=== PATIENT | female | born 1955 | race Caucasian/White ===

== ENCOUNTER → 2018-01-13 14:09 | Outpatient (CLI) | payer OTHER, SELFPAY ==
[2018-01-13 15:50] LABS: Absolute Lymphocyte Count 2.32 X10^3/ul (0.83-4.51); Basophil# 0.04 X10^3/uL; Basophil% 0.7 % (0-1); Eosinophil# 0.24 X10^3/uL; Hematocrit 36.7 % (37-47); Hemoglobin 12.3 g/dl (12.0-15.0); Lymphocyte # 2.32 X10^3/ul (4.0); Lymphocyte % 38.7 % (19-41); Mean Corp Hgb Conc 33.5 g/gl (32-36); Mean Corpuscular Hgb 31.5 pg (27.0-32.0); Mean Corpuscular Volume 93.9 fL (81-99); Mean Platelet Vol. 9.1 fl (6.2-12.0); Monocyte# 0.43 X10^3/uL; Monocyte% 7.2 % (0-10); Neutrophil # 2.95 X10^3/uL (2.7-7.7); Neutrophil % 49.2 % (47-70); Platelet Count 292 K/mm3 (150-450); RBC Distribution Width CV 12.5 % (11.6-14.6); RBC Distribution Width SD 42.1 fl (35.1-43.9); Red Blood Count 3.91 M/mm3 (4.2-5.4)
[2018-01-13 15:53] LABS: POSITIVE COUNT NO; POSITIVE DIFFERENTIAL NO; POSITIVE MORPHOLOGY NO
[2018-01-13 16:15] LABS: Anion Gap 9 (5-15); BUN 19 mg/dL (7-18); Calcium,Total 8.4 mg/dL (8.5-10.1); Chloride 111 mmol/L (98-107); EST Glomerular Filtration Rate 89 mL/min (>60); Est Glom Filt Rate - Afr Amer 108 mL/min (>60); Glucose 96 mg/dL (74-106); Potassium 3.5 mmol/L (3.5-5.1); Sodium Level 143 mmol/L (136-145)
[2018-01-14 08:35] LABS: Vitamin D,25 Hydroxy 64.1 ng/mL (29.95-100.01)
== END ==
PROVIDERS: Family Provider Family Medicine; PCP Family Medicine; Visit Provider Family Medicine
DX: I10 Essential (primary) hypertension (principal); L20.9 Atopic dermatitis, unspecified; M81.0 Age-related osteoporosis without current pathological fracture
CPT/HCPCS: 36415; 80048; 82306; 85025

== ENCOUNTER → 2018-03-23 09:55 | Outpatient (CLI) | payer OTHER, SELFPAY ==
[2018-03-23 12:33] LABS: Erythrocyte Sedimentation Rate 4 mm/hr (0-30)
[2018-03-23 12:34] LABS: Absolute Lymphocyte Count 2.43 X10^3/ul (0.83-4.51); Absolute Neutrophil Count 2.6 X10^3/uL (2.0-7.7); Basophil# 0.04 X10^3/uL; Basophil% 0.7 % (0-1); Eosinophil# 0.26 X10^3/uL; Eosinophils% 4.5 % (0-5); Hematocrit 39.7 % (37-47); Hemoglobin 13.5 g/dl (12.0-15.0); Lymphocyte # 2.43 X10^3/ul (4.0); Mean Corpuscular Hgb 31.3 pg (27.0-32.0); Mean Corpuscular Volume 92.1 fL (81-99); Mean Platelet Vol. 9.2 fl (6.2-12.0); Monocyte# 0.44 X10^3/uL; Monocyte% 7.6 % (0-10); Neutrophil # 2.62 X10^3/uL (2.7-7.7); Neutrophil % 45.2 % (47-70); POSITIVE COUNT NO; POSITIVE DIFFERENTIAL NO; POSITIVE MORPHOLOGY NO; Platelet Count 294 K/mm3 (150-450); RBC Distribution Width CV 11.8 % (11.6-14.6); RBC Distribution Width SD 39.1 fl (35.1-43.9); Red Blood Count 4.31 M/mm3 (4.2-5.4); White Blood Count 5.8 K/mm3 (4.4-11.0)
[2018-03-23 12:40] LABS: ALB/GLOB Ratio 1.2 RATIO (0.9-2.4); AST(SGOT) 18 U/L (15-37); Alanine Aminotransfer ALT/SGPT 24 U/L (13-56); Albumin, Serum 3.8 g/dL (3.2-5.0); Alkaline Phosphatase 110 U/L (45-117); Anion Gap 9 (5-15); BUN 23 mg/dL (7-18); BUN/Creat Ratio 32.6 RATIO (10-20); CRP < 2.90 mg/L (0.0-3.0); Calcium,Total 8.7 mg/dL (8.5-10.1); Chloride 108 mmol/L (98-107); Creatinine, Serum 0.71 mg/dL (0.55-1.02); EST Glomerular Filtration Rate 89 mL/min (>60); Est Glom Filt Rate - Afr Amer 108 mL/min (>60); Globulin 3.2 g/dL (2.2-4.2); Glucose 88 mg/dL (74-106); Potassium 3.9 mmol/L (3.5-5.1); Sodium Level 143 mmol/L (136-145)
== END ==
PROVIDERS: Family Provider Family Medicine; PCP Family Medicine; Visit Provider Internal Medicine Rheumatology
DX: M06.4 Inflammatory polyarthropathy (principal); M18.0 Bilateral primary osteoarthritis of first carpometacarpal joints; M19.072 Primary osteoarthritis, left ankle and foot; M41.9 Scoliosis, unspecified; I10 Essential (primary) hypertension
CPT/HCPCS: 36415; 80053; 85025; 85652; 86140

== ENCOUNTER → 2018-07-01 12:44 | Outpatient (CLI) | payer OTHER, SELFPAY ==
[2018-07-01 14:05] LABS: Absolute Lymphocyte Count 2.67 X10^3/ul (0.83-4.51); Absolute Neutrophil Count 2.1 X10^3/uL (2.0-7.7); Basophil# 0.06 X10^3/uL; Basophil% 1.1 % (0-1); Eosinophil# 0.24 X10^3/uL; Eosinophils% 4.4 % (0-5); Hematocrit 41.2 % (37-47); Hemoglobin 13.6 g/dl (12.0-15.0); Lymphocyte # 2.67 X10^3/ul (4.0); Lymphocyte % 49.4 % (19-41); Mean Corpuscular Hgb 30.3 pg (27.0-32.0); Mean Corpuscular Volume 91.8 fL (81-99); Monocyte# 0.32 X10^3/uL; Monocyte% 5.9 % (0-10); Neutrophil # 2.11 X10^3/uL (2.7-7.7); Neutrophil % 39.2 % (47-70); Platelet Count 282 K/mm3 (150-450); RBC Distribution Width SD 40.4 fl (35.1-43.9); Red Blood Count 4.49 M/mm3 (4.2-5.4); White Blood Count 5.4 K/mm3 (4.4-11.0)
[2018-07-01 14:06] LABS: POSITIVE COUNT NO; POSITIVE DIFFERENTIAL NO; POSITIVE MORPHOLOGY NO
[2018-07-01 14:46] LABS: ALB/GLOB Ratio 1.2 RATIO (0.9-2.4); AST(SGOT) 17 U/L (15-37); Alanine Aminotransfer ALT/SGPT 23 U/L (13-56); Alkaline Phosphatase 102 U/L (45-117); Anion Gap 8 (5-15); BUN 16 mg/dL (7-18); BUN/Creat Ratio 22.9 RATIO (10-20); Calcium,Total 8.9 mg/dL (8.5-10.1); Chloride 104 mmol/L (98-107); EST Glomerular Filtration Rate 90 mL/min (>60); Est Glom Filt Rate - Afr Amer 109 mL/min (>60); Globulin 3.3 g/dL (2.2-4.2); Glucose 101 mg/dL (74-106); Potassium 3.9 mmol/L (3.5-5.1); Protein, Total 7.3 g/dL (6.4-8.2); Sodium Level 141 mmol/L (136-145)
== END ==
PROVIDERS: Family Provider Family Medicine; PCP Family Medicine; Referring Provider Internal Medicine Rheumatology; Visit Provider Internal Medicine Rheumatology
DX: M06.4 Inflammatory polyarthropathy (principal); M18.0 Bilateral primary osteoarthritis of first carpometacarpal joints; M19.072 Primary osteoarthritis, left ankle and foot; M41.9 Scoliosis, unspecified; I10 Essential (primary) hypertension
CPT/HCPCS: 36415; 80053; 85025

== ENCOUNTER → 2019-07-18 09:17 | Outpatient (CLI) | payer OTHER, SELFPAY ==
[2019-07-18 10:45] LABS: ALB/GLOB Ratio 1.2 RATIO (0.9-2.4); AST(SGOT) 16 U/L (15-37); Alanine Aminotransfer ALT/SGPT 21 U/L (13-56); Albumin, Serum 3.9 g/dL (3.2-5.0); Alkaline Phosphatase 114 U/L (45-117); Anion Gap 7 (5-15); BUN 21 mg/dL (7-18); BUN/Creat Ratio 25.5 RATIO (10-20); Calcium,Total 8.7 mg/dL (8.5-10.1); Chloride 107 mmol/L (98-107); Cholesterol 199 mg/dL (200); Creatinine, Serum 0.82 mg/dL (0.55-1.02); EST Glomerular Filtration Rate 74 mL/min (>60); Est Glom Filt Rate - Afr Amer 90 mL/min (>60); Globulin 3.3 g/dL (2.2-4.2); Glucose 96 mg/dL (74-106); High Density Lipoprotein 62 mg/dL; Potassium 3.8 mmol/L (3.5-5.1); Protein, Total 7.2 g/dL (6.4-8.2); Sodium Level 140 mmol/L (136-145); Triglycerides 100 mg/dL; Very Low Density Lipoprotein 20 mg/dL (5-40)
== END ==
PROVIDERS: Family Provider Family Medicine; PCP Family Medicine; Referring Provider Family Medicine; Visit Provider Family Medicine
DX: I10 Essential (primary) hypertension (principal)
CPT/HCPCS: 36415; 80053; 80061

== ENCOUNTER → 2020-07-22 08:14 | Outpatient (CLI) | payer MEDICARE, SELFPAY ==
[2020-07-22 10:18] LABS: Absolute Lymphocyte Count 2.52 X10^3/uL (0.83-4.51); Absolute Neutrophil Count 1.8 X10^3/uL (2.0-7.7); Basophil# 0.06 X10^3/uL; Basophil% 1.2 % (0-1); Eosinophil# 0.25 X10^3/uL; Hematocrit 40.7 % (37-47); Hemoglobin 13.7 g/dL (12.0-15.0); Lymphocyte # 2.52 X10^3/ul (4.0); Lymphocyte % 50.3 % (19-41); Mean Corp Hgb Conc 33.7 g/dL (32-36); Mean Corpuscular Hgb 31.4 pg (27.0-32.0); Mean Corpuscular Volume 93.3 fL (81-99); Mean Platelet Vol. 9.1 fl (6.2-12.0); Monocyte# 0.37 X10^3/uL; Monocyte% 7.4 % (0-10); NRBC Flagged by Analyzer 0 % (0-5); Neutrophil % 35.9 % (47-70); Platelet Count 319 K/mm3 (150-450); RBC Distribution Width CV 11.7 % (11.6-14.6); RBC Distribution Width SD 39.8 fl (35.1-43.9); Red Blood Count 4.36 M/mm3 (4.2-5.4)
[2020-07-22 10:34] LABS: ALB/GLOB Ratio 1.1 RATIO (0.9-2.4); AST(SGOT) 13 U/L (15-37); Alanine Aminotransfer ALT/SGPT 18 U/L (13-56); Albumin, Serum 3.7 g/dL (3.2-5.0); Alkaline Phosphatase 120 U/L (45-117); Anion Gap 9 (5-15); BUN 23 mg/dL (7-18); BUN/Creat Ratio 32.2 RATIO (10-20); Calcium,Total 9.1 mg/dL (8.5-10.1); Chloride 107 mmol/L (98-107); Cholesterol 180 mg/dL (200); Creatinine, Serum 0.71 mg/dL (0.55-1.02); EST Glomerular Filtration Rate 87 mL/min (>60); Est Glom Filt Rate - Afr Amer 105 mL/min (>60); Globulin 3.4 g/dL (2.2-4.2); Glucose 98 mg/dL (74-106); High Density Lipoprotein 64 mg/dL; Lipase 145 U/L (73-393); Potassium 3.9 mmol/L (3.5-5.1); Protein, Total 7.1 g/dL (6.4-8.2); Sodium Level 142 mmol/L (136-145); Triglycerides 88 mg/dL; Very Low Density Lipoprotein 18 mg/dL (5-40)
== END ==
PROVIDERS: PCP Family Medicine; Referring Provider Family Medicine; Visit Provider Family Medicine
DX: R10.9 Unspecified abdominal pain (principal); I10 Essential (primary) hypertension
CPT/HCPCS: 36415; 80053; 80061; 83690; 85025

== ENCOUNTER → 2020-07-24 06:28 | Outpatient (CLI) | payer MEDICARE, SELFPAY ==
--- NOTE | 2020-07-24 06:48 | MRI_ITS ---
ACR Level 3 findings have been noted. An addendum which confirms receipt of the report will follow. STUDY: MRI BRAIN WITHOUT CONTRAST REASON FOR EXAM: Female, 65 years old. headaches, family history of glioblastoma TECHNIQUE: Standardized multiplanar fat and water weighted pulse sequences were obtained. COMPARISON: None. FINDINGS: Normal size of the ventricles and extra-axial spaces for the patient''s age. Normal white matter tracts of the supratentorial brain. Normal bilateral basal ganglia. Normal thalami. There is 2.7 x 2.3 x 3.0 cm extra-axial rounded mass along the left interhemispheric fissure. There is relatively low T2 signal and restricted diffusion. There is central heterogeneous signal. There is no demonstrated surrounding edema. Normal flow voids within the major intracranial circulation suggesting patency by spin echo criteria. Normal sella turcica, pituitary gland, infundibular stalk, optic chiasm and hypothalamus. Normal tectal plate and pineal gland. Normal midbrain, fady and medulla. Normal cerebellum. Normal basal cisterns. MRI/Brain without Contrast IMPRESSION: 3.0 cm left parafalcine mass. Leading differential consideration is meningioma. Comparison with prior examinations if available or further evaluation with contrast-enhanced MRI is recommended. Electronically Signed: Vinh Kolb MD at 8:03 EST Tel , Service support ,
--- NOTE | 2020-07-24 09:40 | MRI_ITS ---
STUDY: MRI BRAIN WITH CONTRAST REASON FOR EXAM: Female, 65 years old. BLOOM, FOLLOW UP TO NON CONTRAST SCAN EARLIER TODAY TECHNIQUE: Standardized multiplanar fat and water weighted pulse sequences were obtained. IV Dotarem 13ml was administered for the contrast portion of the examination. COMPARISON: 07/24/2020 FINDINGS: Normal size of the ventricles and extra-axial spaces for the patient''s age. Normal white matter tracts of the supratentorial brain. Normal bilateral basal ganglia. Normal thalami. There is no extra-axial fluid accumulation. Normal flow voids within the major intracranial circulation suggesting patency by spin echo criteria. Normal venous enhancement. There is solid enhancement of the dural based mass of the left side of the falx consistent with a meningioma with mild mass effect on the superior left frontal lobe but no surrounding gliosis or edema. Normal sella turcica, pituitary gland, infundibular stalk, optic chiasm and hypothalamus. Normal tectal plate and pineal gland. Normal midbrain, fady and medulla. Normal cerebellum. Normal basal cisterns. Normal bilateral temporal bones. Normal bilateral internal auditory canals. No demonstrated orbital abnormality, within the constraints of a routine brain study. Normal visualized paranasal sinuses. Normal calvarium and skull base. Normal visualized soft tissue structures. Normal visualized upper cervical spine. MRI/Brain WITH Contrast IMPRESSION: 2.5 cm round meningioma the left side of the falx cerebri with mild mass effect on the superior left frontal lobe. Electronically Signed: Brodie Garnica MD at 15:45 EST Tel , Service support ,
== END ==
PROVIDERS: PCP Family Medicine; Referring Provider Family Medicine; Visit Provider Family Medicine
DX: R51.9 Headache, unspecified (principal)
CPT/HCPCS: 70551; 70552; A9575

== ENCOUNTER → 2020-07-25 09:30 | Outpatient (CLI) | payer MEDICARE, SELFPAY ==
--- NOTE | 2020-07-25 09:40 | US_ITS ---
STUDY: ABDOMINAL ULTRASOUND REASON FOR EXAM: Female, 65 years old. ABDOMEN PAIN HX IBS TECHNIQUE: Transabdominal ultrasound was performed with real-time and static wadsworth scale imaging. TECHNICAL QUALITY: Adequate. COMPARISON: None. FINDINGS: Liver: The liver measures 16.7 cm. There is normal echogenicity of the liver. The bile ducts are within normal limits. There is hepatic color flow. The direction of portal flow is hepatopetal. There is no demonstrated mass lesion. Portal vein measurement: Gallbladder: The patient is status post cholecystectomy.. Common Bile Duct (C.B.D.): The common bile duct measures 3 mm. Pancreas: Normal size of the head, body and tail of the pancreas. There is normal echogenicity of the pancreas. There is no demonstrated pancreatic mass or cyst. Spleen: Normal size of the spleen. The spleen measures 7.5 cm. Right Kidney: Normal size of the right kidney. The right kidney measures 10.5 cm. Normal renal cortex. The right cortex measures 1.2 cm. There is no demonstrated renal mass or cyst. There is no right hydronephrosis. Left Kidney: Normal size of the left kidney. The left kidney measures 10.1 cm. Normal renal cortex. The left cortex measures 1.8 cm. There is no demonstrated renal mass or cyst. There is no left hydronephrosis. Aorta: No abdominal aortic aneurysm. I.V.C.: The IVC is patent. There is no ascites. US/Abdomen Complete IMPRESSION: Normal abdominal ultrasound examination after cholecystectomy. Electronically Signed: Brodie Garnica MD at 13:11 EST Tel , Service support ,
== END ==
PROVIDERS: PCP Family Medicine; Referring Provider Family Medicine; Visit Provider Family Medicine
DX: R10.9 Unspecified abdominal pain (principal)
CPT/HCPCS: 76700

== ENCOUNTER → 2020-10-08 06:28 | Outpatient (CLI) | payer MEDICARE, SELFPAY ==
--- NOTE | 2020-10-08 06:46 | MRI_ITS ---
STUDY: MRI BRAIN WITH AND WITHOUT CONTRAST REASON FOR EXAM: Female, 65 years old. h/o brain tumor, headaches TECHNIQUE: Standardized multiplanar fat and water weighted pulse sequences were obtained. IV dotarem 13cc was administered for the contrast portion of the examination. COMPARISON: 07/24/2020 FINDINGS: Normal size of the ventricles and extra-axial spaces for the patient''s age. Normal white matter tracts of the supratentorial brain. There is no evidence for recent intracranial ischemia or other cause of cytotoxic edema on diffusion weighted imaging (DWI). Normal T2* images of the brain without demonstrated susceptibility artifact. There is no demonstrated hemosiderin stain. Normal bilateral basal ganglia. Normal thalami. There is no extra-axial fluid accumulation. Normal flow voids within the major intracranial circulation suggesting patency by spin echo criteria. Normal venous enhancement. There is no change in the 2.5 cm round isointense solidly enhancing mass arising from the left side of the falx cerebri consistent with a meningioma. Normal sella turcica, pituitary gland, infundibular stalk, optic chiasm and hypothalamus. Normal tectal plate and pineal gland. Normal midbrain, fady and medulla. Normal cerebellum. Normal basal cisterns. Normal bilateral temporal bones. Normal bilateral internal auditory canals. No demonstrated orbital abnormality, within the constraints of a routine brain study. There is mucoperiosteal inflammatory disease of the paranasal sinuses consistent with mild chronic sinusitis. Normal calvarium and skull base. Normal visualized soft tissue structures. Normal visualized upper cervical spine. MRI/Brain W/WO Contrast IMPRESSION: No change in the 2.5 cm meningioma arising from the left side of the falx cerebri. Electronically Signed: Brodie Garnica MD at 16:02 EST Tel , Service support ,
[2020-10-09 07:42] LABS: CREATININE FINGERSTICK 1.04 mg/dL (0.55-1.02); EGFR FINGERSTICK 57 mL/min (>60)
== END ==
PROVIDERS: PCP Family Medicine
DX: D32.0 Benign neoplasm of cerebral meninges (principal)
CPT/HCPCS: 70553; A9575

== ENCOUNTER → 2021-03-03 15:40 | Outpatient (CLI) | payer MEDICARE, SELFPAY ==
[2021-03-03 18:34] LABS: Anion Gap 8 (5-15); BUN 20 mg/dL (7-18); Calcium,Total 8.5 mg/dL (8.5-10.1); Chloride 107 mmol/L (98-107); Creatinine, Serum 1.05 mg/dL (0.55-1.02); EST Glomerular Filtration Rate 56 mL/min (>60); Est Glom Filt Rate - Afr Amer 67 mL/min (>60); Glucose 78 mg/dL (74-106); Potassium 3.6 mmol/L (3.5-5.1); Sodium Level 142 mmol/L (136-145)
== END ==
PROVIDERS: PCP Family Medicine; Referring Provider Family Medicine; Visit Provider Family Medicine
DX: I10 Essential (primary) hypertension (principal)
CPT/HCPCS: 36415; 80048

== ENCOUNTER → 2021-04-07 11:05 | Outpatient (CLI) | payer MEDICARE, SELFPAY ==
[2021-04-02 15:30] LABS: BUN 15 mg/dL (7-18); Creatinine, Serum 0.79 mg/dL (0.55-1.02); EST Glomerular Filtration Rate 77 mL/min (>60); Est Glom Filt Rate - Afr Amer 94 mL/min (>60)
--- NOTE | 2021-04-07 11:31 | MRI_ITS ---
STUDY: MRI BRAIN WITH AND WITHOUT CONTRAST REASON FOR EXAM: Female, 66 years old. MENINGIOMA TECHNIQUE: Standardized multiplanar fat and water weighted pulse sequences were obtained. IV dotarem 13ml was administered for the contrast portion of the examination. COMPARISON: 09/18/2020 FINDINGS: Normal size of the ventricles and extra-axial spaces for the patient''s age. Normal white matter tracts of the supratentorial brain. Normal bilateral basal ganglia. Normal thalami. There is no extra-axial fluid accumulation. Normal flow voids within the major intracranial circulation suggesting patency by spin echo criteria. Normal venous enhancement. There is no enhancing intra-axial or extra-axial abnormality. Normal sella turcica, pituitary gland, infundibular stalk, optic chiasm and hypothalamus. Normal tectal plate and pineal gland. Normal midbrain, fady and medulla. Normal cerebellum. Normal basal cisterns. Normal bilateral temporal bones. Normal bilateral internal auditory canals. There is a partially calcified otherwise homogeneously enhancing dural based mass measuring 2.6 x 2.84 x 2.47 cm midline arising from the falx projecting into the left frontal lobe and to a lesser extent on the right. There is no appreciable edema or mass effect. No demonstrated orbital abnormality, within the constraints of a routine brain study. Small mucous retention cyst in the right maxillary sinus and mild mucosal thickening in the left.. Normal calvarium and skull base. Normal visualized soft tissue structures. Normal visualized upper cervical spine. No significant change since prior exam MRI/Brain W/WO Contrast IMPRESSION: Stable appearance to the meningioma arising from the falx cerebri. No other significant abnormality or change since prior exam Electronically Signed: Steve Wilkerson MD at 16:23 EDT , Service support ,
== END ==
PROVIDERS: PCP Family Medicine
DX: D32.0 Benign neoplasm of cerebral meninges (principal)
CPT/HCPCS: 36415; 70553; 82565; 84520; A9575

== ENCOUNTER → 2021-07-17 10:02 | Outpatient (CLI) | payer MEDICARE, SELFPAY ==
[2021-07-17 12:12] LABS: Absolute Lymphocyte Count 2.88 X10^3/uL (0.83-4.51); Basophil# 0.07 X10^3/uL; Basophil% 1.2 % (0-1); Eosinophil# 0.31 X10^3/uL; Eosinophils% 5.5 % (0-5); Hematocrit 41.8 % (37-47); Hemoglobin 14.1 g/dL (12.0-15.0); Lymphocyte # 2.88 X10^3/ul (0.83-4.51); Lymphocyte % 51.1 % (19-41); Mean Corp Hgb Conc 33.7 g/dL (32-36); Mean Corpuscular Volume 91.9 fL (81-99); Mean Platelet Vol. 8.8 fl (6.2-12.0); Monocyte# 0.38 X10^3/uL; Monocyte% 6.7 % (0-10); NRBC Flagged by Analyzer 0 % (0-5); Neutrophil # 1.99 X10^3/uL (2.7-7.7); Neutrophil % 35.3 % (47-70); Platelet Count 318 K/mm3 (150-450); RBC Distribution Width CV 11.9 % (11.6-14.6); RBC Distribution Width SD 40.4 fl (35.1-43.9); Red Blood Count 4.55 M/mm3 (4.2-5.4); White Blood Count 5.6 K/mm3 (4.4-11.0)
[2021-07-17 12:44] LABS: AST(SGOT) 15 U/L (15-37); Alanine Aminotransfer ALT/SGPT 23 U/L (13-56); Albumin, Serum 3.7 g/dL (3.2-5.0); Alkaline Phosphatase 110 U/L (45-117); Anion Gap 6 (5-15); BUN 18 mg/dL (7-18); Calcium,Total 9.4 mg/dL (8.5-10.1); Chloride 103 mmol/L (98-107); Cholesterol 214 mg/dL (200); Creatinine, Serum 0.78 mg/dL (0.55-1.02); EST Glomerular Filtration Rate 78 mL/min (>60); Est Glom Filt Rate - Afr Amer 94 mL/min (>60); Globulin 3.6 g/dL (2.2-4.2); Glucose 101 mg/dL (74-106); High Density Lipoprotein 61 mg/dL; Protein, Total 7.3 g/dL (6.4-8.2); Sodium Level 138 mmol/L (136-145); Triglycerides 106 mg/dL; Very Low Density Lipoprotein 21 mg/dL (5-40)
== END ==
PROVIDERS: PCP Family Medicine; Referring Provider Family Medicine; Visit Provider Family Medicine
DX: I10 Essential (primary) hypertension (principal)
CPT/HCPCS: 36415; 80053; 80061; 85025

== ENCOUNTER → 2021-12-30 | Outpatient (CLI) | payer MEDICARE, SELFPAY | END | disposition home or self-care (01) | LOC: SL 20:57 | PROVIDERS: PCP Internal Medicine; Visit Provider Internal Medicine | DX: G47.30 Sleep apnea, unspecified (principal); R06.83 Snoring; F51.4 Sleep terrors [night terrors] | CPT/HCPCS: 95810 ==

== ENCOUNTER → 2022-03-02 | Outpatient (CLI) | payer MEDICARE, SELFPAY ==
--- NOTE | 2022-03-02 15:25 | ST.MBS ---
Modified Barium Swallow - Patient Information Study Date: 03/02/22 Study Time: 13:00 Direct Billable Minutes: 90 Total Minutes procedure & reportin Diagnosis: Unspecified foreign body in the larynx causing injury (T17.308A) Referring Physician: Leia Kaiser Reason for Referral: Objectively assess swallow function, risk for aspiration, and determine recommendations for least restrictive diet textures and compensatory strategies to improve safety of swallow. Medical History: The patient is a 67 year old female who reports PMH of HTN, GERD, meningioma, broken shoulder, arthritis in her neck. She reported having an upper GI ~1 year ago to assess for hiatal hernia. She did not have hiatal hernia; however, she was diagnosed with GERD. She has been taking medication to manage it, and she reports decreased sensation of heartburn. The patient was referred for MBS study by her PCP after reporting coughing episodes with food, drink, and occasionally saliva. She reports at times the sensation of food sliding down too fast. Additionally, she feels that food becomes caught at the base of her throat. This difficulty swallowing occurs ~1X/month and began ~2 years ago. Current Diet Ordered: Regular / Thin Dentition: WNL Mental Status: WNL Respiratory Status: Oxygenating on Room Air - Penetration-Aspiration Scale Penetration-Aspiration Scale: OBJECTIVE ASSESSMENT OF SWALLOW FUNCTION (QUANTITATIVE ? PER TRIAL): PENETRATION / ASPIRATION SCALE (CABRERA): 1 = does not enter airway 2 = enters airway/above vocal folds/ejected 3 = enters airway/above vocal folds/not ejected 4 = enters airway/contacts vocal folds/ejected 5 = enters airway/contacts vocal folds/not ejected 6 = enters airway/below vocal folds/ejected 7 = enters airway/below vocal folds/not ejected despite effort 8 = enters airway/below vocal folds/no effort VIDEOFLOROSCOPIC SCALE SCORE (CABRERA): Grade I = aspiration of material that has penetrated into the laryngeal vestibule, intact cough reflex Grade II = aspiration < 10 % of the bolus, intact cough reflex Grade III = aspiration of < 10 % of the bolus, reduced cough reflex or aspiration of > 10 % of the bolus, intact cough reflex Grade IV = aspiration of > 10 % of the bolus, reduced cough reflex - Penetration-Aspiration Scale Score Thin Liquid via teaspoon Result: 1= does not enter airway Thin Liquid via teaspoon Trial 2 Result: 1= does not enter airway Thin Liquid via small single sip from cup Result: 1= does not enter airway Thin Liquid via sequential sips from cup Result: 2= enter airway/above vocal folds/ejected - trace penetration [place] Thick Liquid via small single sip from cup Result: 1= does not enter airway Honey Thick Liquid via small single sip from cup Result: 1= does not enter airway Pudding via teaspoon Result: 1= does not enter airway 1/2 Cookie Result: 1= does not enter airway Thin Liquid via single sip from straw Result: 1= does not enter airway Thin Liquid via sequential sips from straw Result: 1= does not enter airway - Oral Phase Labial Seal: No Labial Escape Tongue Control During Bolus Hold: Cohesive bolus between tongue to palatal seal Bolus Preparation/Mastication: Timely and efficient chewing and mashing Bolus Transport/Lingual Motion: Brisk tongue motion Oral Residue: Residue collection on oral structures - Collection of oral residue with cookie effectively cleared with second swallow - Pharyngeal Phase Initiation of Pharyngeal Swallow: Bolus head in valleculae Soft Palate Elevation: Trace column of contrast/air between soft palate and pharyngeal wall Laryngeal Elevation: Comp. Superior move thyroid cart w/comp. apprx arytenoid cart-epig pet Anterior Hyoid Excursion: Complete anterior movement Epiglottic Movement: Complete inversion Laryngeal Vestibule Closure at Height of Swallow: Incomplete; narrow column of air/contrast in laryngeal vestibule - trace laryngeal penetration with full ejection on 1 trial of sequential thin by cup Pharyngeal Stripping Wave: Present - complete Pharyngoesophageal Segment Opening: Complete distension and complete duration; no obstruction of flow Tongue Base Retraction: Trace column of contrast between tongue base & post. pharyngeal wall Pharyngeal Residue: Trace residue within or on pharyngeal structures - Esophageal Phase Esophageal Clearance: Esophageal retention w/ retrograde flow below pharyngoesophageal seg. - Diagnosis/Impression Diagnosis: Oropharyngeal swallow function grossly WNL Impression: The patient demonstrates timely mastication, mild oral residue of cookie which effectively cleared with a second swallow. She presents with good bolus control of liquids and solids. The patient presented with timely swallow. Trace laryngeal penetration with full ejection from the laryngeal vestibule on one sips of sequential thin liquids by cup. No aspiration observed during the study. The patient appears to have a small cricopharyngeal bar at the level of C5; however, it did not appear to impact bolus clearance through the UES. The patient demonstrated esophageal retention of pudding and cookie bolus throughout the mid and lower esophagus with slow emptying and retrograde flow below the UES. - Recommendations Diet: Regular Textures, Thin Liquids Comment: Consider moistening dry textures with sauce/gravy, consider smaller more frequent meals (4-5 smaller meals) daily. Compensatory Strategies: Small Bites, Small Sips, Slow Rate, Sitting upright, Remain sitting upright for 30 minutes after PO intake Recommend Repeat Modified Barium Swallow: No Need for Skilled Speech Therapy Services: No Recommended Referrals: GI Consult - Consider GI consult to address slow esophageal motility. Pt is at risk for reflux aspiration. Pt reports upper GI completed ~1 year ago. Education Completed: 1. Described result of evaluation., 5. Patient demonstrates recommended strategies. - Image Count: [id number] - Status Active ST Patient: Active - Contact Information [facility] Speech Therapy:: Christina Mcdaniels M.A. [facility] Speech-Language Pathologist [facility] [address] [place] [address] [phone] 03/02/22 15:52
== END | disposition home or self-care (01) ==
PROVIDERS: PCP Internal Medicine; Referring Provider Internal Medicine; Visit Provider Internal Medicine
DX: T17.308A Unspecified foreign body in larynx causing other injury, initial encounter (principal); X58.XXXA Exposure to other specified factors, initial encounter
CPT/HCPCS: 74230; 92611

== ENCOUNTER → 2022-03-19 | Outpatient (CLI) | payer MEDICARE, SELFPAY ==
--- NOTE | 2022-03-19 07:27 | CT_ITS ---
STUDY: CT ABDOMEN WITH CONTRAST REASON FOR EXAM: Female, 67 years old. Right upper quadrant pain with tenderness. Prior cholecystectomy. RADIATION DOSAGE (If Supplied By Facility): CTDIvol = ( 10.75 ) mGy, DLP = ( 383.74 ) mGycm TECHNIQUE: Transaxial images were obtained post I.V. administration of Oral and amp; IV Readi-CAT and amp; 100mL Isovue-300, and with oral contrast. Sagittal and coronal images were reconstructed. Individualized dose optimization techniques were used for this CT. COMPARISON: None. FINDINGS: The visualized lung bases are unremarkable. The visualized portions of the heart are within normal limits. There is decreased attenuation of the liver consistent with steatosis. Borderline hepatomegaly. The patient is status post cholecystectomy. Normal spleen. Normal pancreas. Normal bilateral adrenal glands. Normal right kidney. Normal left kidney. There is a small hiatal hernia. Normal small intestine. Normal colon. The appendix is visualized and appears normal. Normal abdominal aorta. Normal inferior vena cava. Normal retroperitoneum. There is a small umbilical hernia containing fat. Normal osseous structures. CT/Abdomen WITH IV Contrast IMPRESSION: Fatty infiltration of the liver. Borderline hepatomegaly. Status post cholecystectomy. Small hiatal hernia. Electronically Signed: Yonny Méndez MD at 8:42 EDT ,
[2022-03-19 07:55] LABS: CREATININE FINGERSTICK 0.9 mg/dL (0.55-1.02); EGFR FINGERSTICK > 60.0000 mL/min (>60)
== END | disposition home or self-care (01) ==
LOC: CT 07:20
PROVIDERS: PCP Internal Medicine; Referring Provider Internal Medicine; Visit Provider Internal Medicine
DX: K76.0 Fatty (change of) liver, not elsewhere classified (principal); K44.9 Diaphragmatic hernia without obstruction or gangrene; R10.11 Right upper quadrant pain; Z90.49 Acquired absence of other specified parts of digestive tract
CPT/HCPCS: 74160; Q9967

== ENCOUNTER 2022-05-22 10:00 | Outpatient (RCR) | payer MEDICARE, SELFPAY ==
--- NOTE | 2022-03-23 10:29 | HP.PTEVAL ---
Patient's Visit Information NAVEED LE is a 67 year old F referred to Physical Therapy by Dr. Brice Stahl DO with a diagnosis of L humerus fracture and neck pain. Date of Evaluation: 03/19/22 Physical Therapist: Rolando Corley DPT - Visit Plan Frequency: 2-3x /Week Duration: 4 Weeks Plan: Spoke with PT Reji, No PROM at this time but okay to do AAROM/AROM - Subjective Pt. is here today for her initial evaluation with diagnosis of L shoulder proximal humerus fracture and another script for neck pain. Pt. reports fracturing her arm in December when she fell out of the shower and landed on her arm. She did not have an ORIF, but was treated conservatively. Pt. reports overall doing well, but still has trouble driving, lifting, reaching behind her back and doing her hair. Pt. denies pain at rest, but has some soreness with end range mobility. She has been using her arm as tolerated after being in a sling for 4 weeks. She is now being followed by Dr. Stahl for her shoulder and her PCP is Dr. Kaiser who sent her here for her neck. She is overall pleased with her mobility and tolerance. Pt is hopeful to gain her full mobility back and get back to golfing without issues. Her neck is mostly stiffness and some mild pain at UT and levator scap regions. No N/T in either UEs. She reports having stiffness as her main complaint with her neck. - Pain L shoulder Pain Intensity (Out of 10): 0 Pain Intensity Range: 0, 2 Neck Pain Intensity (Out of 10): 0 Pain Intensity Range: 0, 2 - Objective POSTURE: Pt. has good shoulder posture, equal heights, none forward posture. Pt. does have increased thoracic kyphosis resulting in hyper extended lower cervical spine. PALPATION: Pt. has slight tenderness at B UT and B levator scapulae (L worse than R). NEURO: Pt. has normal sensation throughout BUEs to light and sharp touch. Normal DTR of BUEs. ROM: CERICAL SPINE: flexion min loss NE, extension mod loss tightness, rotation mod loss bilat tightness, SB mod loss bilat tightness noted. L shoulder: AROM: flexion 130deg, abd 130deg, ext 35deg, functional ER C1, functional IR S1. No over pressure completed. MMT: RUE 5/5 throughout. LUE: wrist and elbow 5/5. I did not test strength of L shoulder. - Special Tests C/S Radiculapathy - Left Upper limb tension test: Negative C/S Radiculapathy - Right Upper limb tension test: Negative C/S Radiculapathy - Left Spurlings: Negative C/S Radiculapathy - Right Spurlings: Negative C/S Radiculapathy - Left Cervical distraction: Negative C/S Radiculapathy - Right Cervical distraction: Negative C/S Radiculapathy - Left Relief test: Negative C/S Radiculapathy - Right Relief test: Negative C/S Radiculapathy - Valsalva: Negative Cervical Sitting: Protrusion - Mechanical Response: No effect Cervical Sitting: Protrusion - Symptoms During Testing: No effect Cervical Sitting: Protrusion - Symptoms After Testing: No effect Cervical Sitting: Retraction - Mechanical Response: No effect Cervical Sitting: Retraction - Symptoms During Testing: No effect Cervical Sitting: Retraction - Symptoms After Testing: No effect Cervical Sitting: Retraction-Extension - Mechanical Response: No effect Cerv Sitting: Retraction-Extension - Symptoms During Testing: No effect Cerv Sitting: Retraction-Extension - Symptoms After Testing: No effect Cervical Sitting: Sidebend Right - Mechanical Response: No effect Cervical Sitting: Sidebend Right - Symptoms During Testing: No effect Cervical Sitting: Sidebend Right - Symptoms After Testing: No effect Cervical Sitting: Sidebend Left - Mechanical Response: No effect Cervical Sitting: Sidebend Left - Symptoms During Testing: No effect Cervical Sitting: Sidebend Left - Symptoms After Testing: No effect Cervical Sitting: Rotation Right - Mechanical Response: No effect Cervical Sitting: Rotation Right - Symptoms During Testing: No effect Cervical Sitting: Rotation Right - Symptoms After Testing: No effect Cervical Sitting: Rotation Left - Mechanical Response: No effect Cervical Sitting: Rotation Left - Symptoms During Testing: No effect Cervical Sitting: Rotation Left - Symptoms After Testing: No effect Cervical Sitting: Flexion - Mechanical Response: No effect Cervical Sitting: Flexion - Symptoms During Testing: No effect Cervical Sitting: Flexion - Symptoms After Testing: No effect - Balance/Special Test Scores Oswestry Neck Score: 9 Quick DASH Score: 43.1800 - Goals Goal 1:: LTG: Pt. to be I with HEP for AROM/AAROM of both L shoulder and cervical spine. Goal Time Frame: 4-6 Weeks Goal 2:: STG: Pt. to have increased AAROM of L shoulder to full without increase in L shoulder pain. Goal Time Frame: 2-4 Weeks Goal 3:: LTG: Pt. to have full AROM of L shoulder without increase in symptoms. Goal Time Frame: 4-6 Weeks Goal 4:: LTG: Pt. to have increased cervical spine ROM by 25% in all directions. Goal Time Frame: 4-6 Weeks - Rehabilitation Potential Physical Therapy Diagnosis: Pt. lai signs and symptoms consistent with healing L humerus fracture and neck stiffness. She is progressing well with her L shoulder ROM, but is still limited and tight throughout her cervical spine. Pt. would benefit from PT to address the ROM of both. Rehabilitation Potential: Excellent - Anticipated Interventions Patient/Client Instruction: Educate patient on: Condition, Plan of Care, Risk Factors, Benefits of Fitness Program For the Purpose of:: To improve decision making, To facilitate caregiver knowledge, To improve self management, To prevent re-injury, To improve ability to perform tasks related to life management, To improve tolerance to ADL's Therapeutic Exercise to Include: Strength training, Body mechanics, Postural training, Flexibilty training, Active ROM, Joey Exercises For the Purpose of:: To decrease pain, To increase ROM, To improve nutrient delivery to tissue, To increase oxygenation perfusion, To improve muscle performance and motor function, To improve ability to perform ADL's, To improve ability of physical actions for home/community/work/leisure, To decrease soft tissue restriction, To increase flexibility/ROM Thank you for the opportunity to evaluate your patient. For Medicare and Medicare HMO plans, please review the plan of care and approve it. It will need to be FAXED BACK to us at [phone] for Medicare purposes. For Medicare only, by signing this I certify the plan of care. Please let me know if there are questions or concerns regarding this plan of care. Physician Signature: Date:
--- NOTE | 2022-04-14 10:32 | HP.PTEVAL_ITS ---
Patient's Visit Information NAVEED LE is a 67 year old F referred to Physical Therapy by Dr. Brice Stahl DO with a diagnosis of L humerus fracture and neck pain. Date of Evaluation: 03/19/22 Physical Therapist: Rolando Corley DPT - Visit Plan Frequency: 2-3x /Week Duration: 4 Weeks Plan: I want to continue to work on end range flexion, abd both passively and actively. We can also progress into phase III (strengthening) work on deltoid, and periscapular musculature as well. - Subjective Pt. is here today for her initial evaluation with diagnosis of L shoulder proximal humerus fracture and another script for neck pain. Pt. reports fracturing her arm in December when she fell out of the shower and landed on her arm. She did not have an ORIF, but was treated conservatively. Pt. reports overall doing well, but still has trouble driving, lifting, reaching behind her back and doing her hair. Pt. denies pain at rest, but has some soreness with end range mobility. She has been using her arm as tolerated after being in a sling for 4 weeks. She is now being followed by Dr. Stahl for her shoulder and her PCP is Dr. Kaiser who sent her here for her neck. She is overall pleased with her mobility and tolerance. Pt is hopeful to gain her full mobility back and get back to golfing without issues. Her neck is mostly stiffness and some mild pain at UT and levator scap regions. No N/T in either UEs. She reports having stiffness as her main complaint with her neck. - Pain L shoulder Pain Intensity (Out of 10): 0 Pain Intensity Range: 0, 2 Comment: w/ certain mvmts and behind back. Neck Pain Intensity (Out of 10): 0 Pain Intensity Range: 0, 2 - Objective POSTURE: Pt. has good shoulder posture, equal heights, none forward posture. Pt. does have increased thoracic kyphosis resulting in hyper extended lower cervical spine. PALPATION: Pt. has slight tenderness at B UT and B levator scapulae (L worse than R). NEURO: Pt. has normal sensation throughout BUEs to light and sharp touch. Normal DTR of BUEs. ROM: CERICAL SPINE: flexion min loss NE, extension mod loss tightness, rotation mod loss bilat tightness, SB mod loss bilat tightness noted. L shoulder: AROM: flexion 130deg, abd 130deg, ext 35deg, functional ER C1, functional IR S1. No over pressure completed. MMT: RUE 5/5 throughout. LUE: wrist and elbow 5/5. I did not test strength of L shoulder. - Special Tests C/S Radiculapathy - Left Upper limb tension test: Negative C/S Radiculapathy - Right Upper limb tension test: Negative C/S Radiculapathy - Left Spurlings: Negative C/S Radiculapathy - Right Spurlings: Negative C/S Radiculapathy - Left Cervical distraction: Negative C/S Radiculapathy - Right Cervical distraction: Negative C/S Radiculapathy - Left Relief test: Negative C/S Radiculapathy - Right Relief test: Negative C/S Radiculapathy - Valsalva: Negative Cervical Sitting: Protrusion - Mechanical Response: No effect Cervical Sitting: Protrusion - Symptoms During Testing: No effect Cervical Sitting: Protrusion - Symptoms After Testing: No effect Cervical Sitting: Retraction - Mechanical Response: No effect Cervical Sitting: Retraction - Symptoms During Testing: No effect Cervical Sitting: Retraction - Symptoms After Testing: No effect Cervical Sitting: Retraction-Extension - Mechanical Response: No effect Cerv Sitting: Retraction-Extension - Symptoms During Testing: No effect Cerv Sitting: Retraction-Extension - Symptoms After Testing: No effect Cervical Sitting: Sidebend Right - Mechanical Response: No effect Cervical Sitting: Sidebend Right - Symptoms During Testing: No effect Cervical Sitting: Sidebend Right - Symptoms After Testing: No effect Cervical Sitting: Sidebend Left - Mechanical Response: No effect Cervical Sitting: Sidebend Left - Symptoms During Testing: No effect Cervical Sitting: Sidebend Left - Symptoms After Testing: No effect Cervical Sitting: Rotation Right - Mechanical Response: No effect Cervical Sitting: Rotation Right - Symptoms During Testing: No effect Cervical Sitting: Rotation Right - Symptoms After Testing: No effect Cervical Sitting: Rotation Left - Mechanical Response: No effect Cervical Sitting: Rotation Left - Symptoms During Testing: No effect Cervical Sitting: Rotation Left - Symptoms After Testing: No effect Cervical Sitting: Flexion - Mechanical Response: No effect Cervical Sitting: Flexion - Symptoms During Testing: No effect Cervical Sitting: Flexion - Symptoms After Testing: No effect - Balance/Special Test Scores Oswestry Neck Score: 9 Quick DASH Score: 43.1800 - Goals Goal 1:: LTG: Pt. to be I with HEP for AROM/AAROM of both L shoulder and cervical spine. Goal Time Frame: 4-6 Weeks Goal 2:: STG: Pt. to have increased AAROM of L shoulder to full without increase in L shoulder pain. Goal Time Frame: 2-4 Weeks Goal 3:: LTG: Pt. to have full AROM of L shoulder without increase in symptoms. Goal Time Frame: 4-6 Weeks Goal 4:: LTG: Pt. to have increased cervical spine ROM by 25% in all directions. Goal Time Frame: 4-6 Weeks Goal 5:: LTG: Pt. to have 5/5 strength of LUE. Goal Time Frame: 4-6 Weeks - Rehabilitation Potential Physical Therapy Diagnosis: Pt. lai signs and symptoms consistent with healing L humerus fracture and neck stiffness. She is progressing well with her L shoulder ROM, but is still limited and tight throughout her cervical spine. Pt. would benefit from PT to address the ROM of both. Rehabilitation Potential: Excellent - Anticipated Interventions Patient/Client Instruction: Educate patient on: Condition, Plan of Care, Risk Factors, Benefits of Fitness Program For the Purpose of:: To improve decision making, To facilitate caregiver knowledge, To improve self management, To prevent re-injury, To improve ability to perform tasks related to life management, To improve tolerance to ADL's Therapeutic Exercise to Include: Strength training, Body mechanics, Postural training, Flexibilty training, Active ROM, Joey Exercises For the Purpose of:: To decrease pain, To increase ROM, To improve nutrient delivery to tissue, To increase oxygenation perfusion, To improve muscle performance and motor function, To improve ability to perform ADL's, To improve ability of physical actions for home/community/work/leisure, To decrease soft tissue restriction, To increase flexibility/ROM Thank you for the opportunity to evaluate your patient. For Medicare and Medicare HMO plans, please review the plan of care and approve it. It will need to be FAXED BACK to us at [phone] for Medicare purposes. For Medicare only, by signing this I certify the plan of care. Please let me know if there are questions or concerns regarding this plan of care. Physician Signature: Date:
--- NOTE | 2022-04-20 10:08 | HP.PTREVAL_ITS ---
Dr. Brice Stahl, DO, It has been my pleasure to treat NAVEED LE over the last 8 visits for L humerus fracture and neck pain. Please see the progress note below for an update on the physical therapy plan of care! Subjective: Pt. reports overall she is doing well. Pt. reports minimal pain and only if she moves her arm a certain way. No pain at rest. She saw her physician who was pleased and is allowing her to work on progressive strengthening at this point in time. Objective/Function: ROM: active range: L shoulder: flexion 160deg, abd 150deg, functional ER C2, functional IR L2. PROM: L shoulder: flexion 165deg, abd 160deg,. MMT: R shoulder: flexion, abd, ext, ER, IR 5/5 throughout. L shoulder: flexion 4/5, abd 4-/5, ext 5/5, ER 4/5, IR 4+/5. Pt. did have a little bit of tenderness at biceps region with ER and flexion resistance. Plan Plan: I want to continue to work on end range flexion, abd both passively and actively. We can also progress into phase III (strengthening) work on deltoid, and periscapular musculature as well. Balance/Gait/Functional tests - Balance/Special Test Scores Oswestry Neck Score: 9 Quick DASH Score: 43.1800 Goals Goal 1:: LTG: Pt. to be I with HEP for AROM/AAROM of both L shoulder and cervical spine. Goal Time Frame: 4-6 Weeks Goal Progress: Progressing Goal 2:: STG: Pt. to have increased AAROM of L shoulder to full without increase in L shoulder pain. Goal Time Frame: 2-4 Weeks Goal Progress: Progressing Goal 3:: LTG: Pt. to have full AROM of L shoulder without increase in symptoms. Goal Time Frame: 4-6 Weeks Goal Progress: Progressing Goal 4:: LTG: Pt. to have increased cervical spine ROM by 25% in all directions. Goal Time Frame: 4-6 Weeks Goal Progress: Progressing Goal 5:: LTG: Pt. to have 5/5 strength of LUE. Goal Time Frame: 4-6 Weeks Goal Progress: Progressing Anticipated Interventions Patient/Client Instruction: Educate patient on: Condition, Plan of Care, Risk Factors, Benefits of Fitness Program For the Purpose of:: To improve decision making, To facilitate caregiver knowledge, To improve self management, To prevent re-injury, To improve ability to perform tasks related to life management, To improve tolerance to ADL's Therapeutic Exercise to Include: Strength training, Body mechanics, Postural training, Flexibilty training, Active ROM, Joey Exercises For the Purpose of:: To decrease pain, To increase ROM, To improve nutrient delivery to tissue, To increase oxygenation perfusion, To improve muscle per formance and motor function, To improve ability to perform ADL's, To improve ability of physical actions for home/community/work/leisure, To decrease soft tissue restriction, To increase flexibility/ROM Please do not hesitate to contact me at [phone] by phone or if you have questions or concerns regarding this new plan of care! Sincerely, Rolando Corley DPT
--- NOTE | 2022-05-22 13:56 | HP.PTDCSUM ---
It has been my pleasure to treat NAVEED LE referred by Dr. Brice Stahl DO, with the diagnosis of L humerus fracture and neck pain for a total of 17 visit(s). Discharge Date: 05/22/22 Please see the following information for a summary of their discharge status. Subjective: Pt. is overall doing well. Pt. reports being 90% better overall. Pt. pleased. Pt. is leaving the state for ~4-6 weeks. Pt. will be DC at this point in time. L shoulder Pain Intensity (Out of 10): 0 Neck Pain Intensity (Out of 10): 0 % Improvement: 90 Objective/Function: ROM: Pt. has good ROM, close to full except slight loss with abd and slight loss with functional IR motions. SHe has some discomfort with functional IR motions. MMT: PT. has 4+/5 strength throughout LUE without pain. She is able to complete all ALDs and IADLs without issues. No issues with sleeping. Pt. reports overall being pleased. Goal 1:: LTG: Pt. to be I with HEP for AROM/AAROM of both L shoulder and cervical spine. Goal Progress: Goal Met Goal 2:: STG: Pt. to have increased AAROM of L shoulder to full without increase in L shoulder pain. Goal Progress: Goal Met Goal 3:: LTG: Pt. to have full AROM of L shoulder without increase in symptoms. Goal Progress: Goal Met Goal 4:: LTG: Pt. to have increased cervical spine ROM by 25% in all directions. Goal Progress: Goal Met Goal 5:: LTG: Pt. to have 5/5 strength of LUE. Goal Progress: Progressing Plan: Pt. will be DC from PT at this point in time. She is I with HEP for ROM and strengthening. Discharge Comments: Naveed is overall doing well. She is missing slight end range of rotational motions and end range over head, but continues to progress. Pt. has good strength and continues to improve in this area as well. She was initially seen for ROM progressed to strengthening. She is I with HEP and will be DC from PT at this point in time. If there are questions or concerns regarding this patient's physical therapy, please feel free to call me at [phone]. Thank you for the referral of this patient. Sincerely, Rolando Camara Sipos, DPT Balance/Gait/Functional tests - Balance/Special Test Scores Oswestry Neck Score: 9 Quick DASH Score: 4.5443
== END 2022-05-22 14:10 | disposition home or self-care (01) ==
LOC: PT 10:00
PROVIDERS: PCP Internal Medicine; Visit Provider Student in an Organized Health Care Education/Training Program
DX: M54.2 Cervicalgia (principal)
CPT/HCPCS: 97110; 97140; 97161; 97164

== ENCOUNTER → 2023-03-09 | Outpatient (CLI) | payer MEDICARE, SELFPAY ==
--- NOTE | 2023-03-09 08:30 | PET_ITS ---
EXAMINATION: FDG PET/CT INDICATIONS: 68-year-old female with a history of pulmonary nodularity. COMPARISON EXAMINATION: None available. INDEX LESION SIZE SUV INTERPRETATION Anterior mediastinum 20.1 mm largest 3.4 max Fulfills borderline quantitative criteria for viable neoplasm, histopathologic sampling may be indicated TECHNIQUE: Following the intravenous administration of 13.03 mCi of F-18 deoxyglucose via the right antecubital fossa, multiplanar image acquisitions of the head, neck, chest, abdomen and pelvis to the level of the midthigh, obtained at one-hour post radiopharmaceutical administration contemporaneously interpreted with the current CT of the chest, abdomen and pelvis dated 03/09/23 via coregistration reveal: SERUM GLUCOSE LEVEL: 110 mg/dL HEIGHT: 65 inches WEIGHT: 150 pounds FINDINGS: HEAD/NECK: There is no evidence of abnormal increased glucose metabolism in the pharyngeal mucosal space, parapharyngeal space, oropharynx, bilateral-lateral and anterior neck, hypopharynx and distribution of the larynx. The visualized portion of the cerebral cortical-subcortical structures demonstrate symmetric and preserved glucose metabolism. CHEST: Focal increased radiopharmaceutical concentration is manifest in the midline anterior mediastinum at a level inferior to the carinal. The calculated maximum standard uptake value is 3.4 max. The maximal axial diameter of the metabolic, morphologic abnormality is 20.[address] of the chest demonstrates the following anatomic characteristics: Atherosclerotic calcification is defined in the thoracic aorta without evidence of dilatation, aneurysm formation. Mediastinal and bilateral axillary soft tissue densities are nonglucose avid. There are no parenchymal densities-nodules defined in the right and left hemithorax pulmonary parenchyma with quantitatively significant increased FDG uptake. ABDOMEN/PELVIS: Normal physiologic distribution of the radiopharmaceutical is identified in the hepatic (3.6) and splenic parenchyma, both renal units, urinary bladder, and visualized intestinal tract. Diffuse intestinal tract is identified in all four quadrants of the abdominal-pelvic mesentery. CT of the abdomen and pelvis is remarkable for the following: Colonic diverticulosis is noted without evidence of diverticulitis. Calcification is noted in the lower pelvis-uterus without evidence of increased tracer uptake. There appear to be subtle cystic adnexal changes to the right of the midline. Right and left inguinal soft tissue densities are ametabolic. SKELETAL: There is no evidence of quantitatively significant enhanced glucose metabolism on meticulous inspection of the appendicular and axial skeletal structures. Degenerative changes defined in the thoracic and lumbar spine demonstrate no evidence of increased glucose metabolism. There are no sclerotic, mixed sclerotic-lytic, or primarily lytic changes defined in the axial skeletal structures with evidence of increased FDG uptake. PET/PET/CT Tumor Base -Thigh Init IMPRESSION: 1. The increase in radiopharmaceutical concentration manifest in the midline anterior mediastinum fulfills borderline quantitative criteria of neoplasm. Histopathologic analysis may be indicated (Ok et al, Journal of Clinical Oncology, 16:2142, 1998). If a conservative management approach is undertaken, repeat FDG PET CT imaging in 3-6 months is recommended. 2. No other quantitatively significant hypermetabolic abnormalities are noted. Electronic Signature Brodie Conner D.O. Accurate Quantification of SUVs for this report are calculated using the exclusive [employer]. ([place].S. Patent No. [phone] US [phone] [place] patent [phone]). Standardization and correction of the FDG SUV metric via [employer] technology allow for vendor non-specific objective quantitative examination comparison and optimization of the sensitivity and specificity of the FDG PET-CT examination. Electronically Signed: Brodie Conner, at 16:03 EDT ,
== END | disposition home or self-care (01) ==
PROVIDERS: PCP Internal Medicine; Referring Provider Internal Medicine; Visit Provider Internal Medicine
DX: R91.8 Other nonspecific abnormal finding of lung field (principal)
CPT/HCPCS: 78815; A9552

== ENCOUNTER → 2023-03-12 | Outpatient (CLI) | payer MEDICARE, SELFPAY ==
[2023-03-12 16:50] LABS: Erythrocyte Sedimentation Rate 5 mm/hr (0-30)
[2023-03-12 17:29] LABS: Amylase 52 U/L (25-115); CRP < 2.90 mg/L (0.0-3.0); LDH 191 U/L (84-246); Lipase 56 U/L (13-75)
[2023-03-18 22:06] LABS: Anti-Centromere B Ab <0.2 AI (0.0-0.9); Anti-Chromatin <0.2 AI (0.0-0.9); Anti-Jo <0.2 AI (0.0-0.9); Anti-Scleroderma-70 AB <0.2 AI (0.0-0.9); Anti-dsDNA Ab <1 IU/mL (0-9); Beef <0.10 kU/L (Class 0); Chocolate <0.10 kU/L (Class 0); Clam <0.10 kU/L (Class 0); Codfish <0.10 kU/L (Class 0); Corn <0.10 kU/L (Class 0); Egg, White <0.10 kU/L (Class 0); Egg, Whole <0.10 kU/L (Class 0); Milk (Cow) <0.10 kU/L (Class 0); Peanut <0.10 kU/L (Class 0); Pork <0.10 kU/L (Class 0); RNP Ab <0.2 AI (0.0-0.9); SCALLOP <0.10 kU/L (Class 0); SESAME SEED <0.10 kU/L (Class 0); SJOGREN'S Anti-SS-A test < 0.2 AI (0.0-0.9); SJOGREN'S Anti-SS-B test < 0.2 AI (0.0-0.9); Shrimp <0.10 kU/L (Class 0); Smith Ab <0.2 AI (0.0-0.9); Soybean <0.10 kU/L (Class 0); Walnut, (Food) <0.10 kU/L (Class 0); Wheat <0.10 kU/L (Class 0)
[2023-03-19 00:06] LABS: Alpha-1-Globulins 0.2 g/dL (0.0-0.4); Alpha-2-Globulins 0.8 g/dL (0.4-1.0); Angiotensin Convert Enzyme 54 U/L (14-82); Cytoplasmic Ab (C-ANCA) <1:20 titer (Neg:<1:20); Endomysial Antibody IgA Negative (Negative); Gamma Globulin 0.9 g/dL (0.4-1.8); Gastrin, Serum 43 pg/mL (0-115); Immunoglobulin A 136 mg/dL (87-352); Immunoglobulin E 6 IU/mL (6-495); Immunoglobulin G 800 mg/dL (586-1602); Immunoglobulin M 99 mg/dL (26-217); PROEL- TOTAL PROTEIN 6.8 g/dL (6.0-8.5); Perinuclear Ab (P-ANCA) <1:20 titer (Neg:<1:20); t-Transglutaminase IgA <2 U/mL (0-3)
== END | disposition home or self-care (01) ==
PROVIDERS: PCP Internal Medicine; Referring Provider Internal Medicine Gastroenterology; Visit Provider Internal Medicine Gastroenterology
DX: R19.7 Diarrhea, unspecified (principal)
CPT/HCPCS: 36415; 82150; 82164; 82784; 82785; 82941; 83516; 83615; 83690; 84165; 85652; 86003; 86005; 86140; 86225; 86235; 86255; 86256; 86334

== ENCOUNTER → 2023-03-18 | Outpatient (CLI) | payer MEDICARE, SELFPAY ==
[2023-03-23 22:07] LABS: Pancreatic Elastase, Fecal > 500 (>200)
[2023-03-25 19:06] LABS: Calprotectin, Stool <5 ug/g (0-120); Fats, Neutral Normal (.); Fats, Total Normal (.)
== END | disposition home or self-care (01) ==
LOC: LABSPEC 13:38
PROVIDERS: PCP Internal Medicine; Referring Provider Internal Medicine Gastroenterology; Visit Provider Internal Medicine Gastroenterology
DX: R19.7 Diarrhea, unspecified (principal); K58.9 Irritable bowel syndrome, unspecified
CPT/HCPCS: 82653; 82705; 83630; 83993; 87177; 87209; 87329; 87493; 87506

== ENCOUNTER → 2023-04-01 | Outpatient (CLI) | payer MEDICARE, SELFPAY ==
--- NOTE | 2023-04-01 10:17 | NM_ITS ---
CLINICAL: 68-year-old female with history of abdominal bloating. SEMI-SOLID PHASE 99m Tc SULFUR COLLOID GASTRIC EMPTYING STUDY COMPARISON: None available FINDINGS: The patient was administered 1.1 mCi of 99m Tc sulfur colloid mixed with oatmeal and consumed per os. Image acquisitions in the anterior-posterior projections were obtained for 60 minutes. There is prompt visualization of the stomach. There is no gastroesophageal reflux identified. The T ? raw data emptying was calculated to be 31.14 minutes, (Normal: 12-56 minutes). NM/Gastric Emptying Study IMPRESSION: 1. NORMAL 99m Tc sulfur colloid semi-solid phase (oatmeal) gastric emptying imaging examination. A. There is normal and preserved semi-solid phase gastric emptying compared to normal controls. (Cat et al, J Nucl Med Tech 38: 186, 2010). Electronically Signed: Brodie Conner, at 21:04 EDT ,
== END | disposition home or self-care (01) ==
LOC: US 10:16
PROVIDERS: PCP Internal Medicine; Referring Provider Internal Medicine Gastroenterology; Visit Provider Internal Medicine Gastroenterology
DX: R14.0 Abdominal distension (gaseous) (principal)
CPT/HCPCS: 78264; A9541

== ENCOUNTER → 2023-04-05 | Outpatient (CLI) | payer MEDICARE, SELFPAY ==
--- NOTE | 2023-04-05 08:02 | US_ITS ---
STUDY: ABDOMINAL ULTRASOUND - RIGHT UPPER QUADRANT; ELASTOGRAPHY REASON FOR VISIT: Female, 68 years old. Fatty infiltration of the liver. TECHNIQUE: Ultrasound evaluation of the right upper quadrant was performed with real-time and static wadsworth-scale imaging. Point quantification shear wave elastography was performed ([employer]). TECHNICAL QUALITY: Adequate. COMPARISON: Comparison is made with prior study dated July 25, 2020. FINDINGS: Liver: The liver measures 17.8 cm. There is increased echogenicity consistent with fatty infiltration. The bile ducts are within normal limits. There is hepatic color flow. The direction of portal flow is hepatopetal. There is no demonstrated mass lesion. Median liver stiffness measured 7.2 kPa. Gallbladder: The patient is status post cholecystectomy. Common Bile Duct (C.B.D.): The common bile duct measures 2.2 mm. Pancreas: There is normal echogenicity of the visualized pancreas. There is no demonstrated pancreatic mass or cyst. Right Kidney: Normal size of the right kidney. The right kidney measures 10.3 cm x 5.1 cm x 4.0 cm. Normal renal cortex. The right cortex measures 1.1 cm. There is no demonstrated renal mass or cyst. There is no right hydronephrosis. US/ABD Complete w/ Elastography IMPRESSION: 1. Liver stiffness measures 7.2 kPa compatible with F2-F3 (Mild to moderate liver fibrosis) Metavir score. Electronically Signed: Yonny Méndez MD at 13:04 EDT ,
== END | disposition home or self-care (01) ==
LOC: US 08:00
PROVIDERS: PCP Internal Medicine; Referring Provider Internal Medicine Gastroenterology; Visit Provider Internal Medicine Gastroenterology
DX: R19.7 Diarrhea, unspecified (principal); K76.0 Fatty (change of) liver, not elsewhere classified
CPT/HCPCS: 76700; 76981

== ENCOUNTER → 2023-08-09 | Outpatient (CLI) | payer MEDICARE, SELFPAY ==
--- NOTE | 2023-08-09 15:49 | MRI_ITS ---
INDICATION: lumbar radiculopathy, had 3 months of PT, NSAIDS, imaging, not improving EXAMINATION: MRI - MR Spine Lumbar W/O Contrast TECHNIQUE: Multiplanar and multisequence MR images of the lumbar spine. IV Contrast Dosage and Agent: None. COMPARISON: None. FINDINGS: VERTEBRAE: Vertebral body heights are preserved. No acute fracture or pathologic marrow replacement. VERTEBRAL ALIGNMENT: No spondylolisthesis. There is preservation of the normal lumbar lordosis. CORD: Normal position and signal intensity of the conus medullaris. L1/L2: Normal disc height and morphology. Normal spinal canal, lateral recesses and neuroforamina. L2/L3: Normal disc height and morphology. Normal spinal canal, lateral recesses and neuroforamina. L3/L4: Normal disc height and morphology. Normal spinal canal, lateral recesses and neuroforamina. L4/L5: Loss of disc height. Circumferential annular bulge and bilateral facet joint hypertrophy produce bilateral foraminal stenosis, right more severe than left. No significant central stenosis. L5/S1: 8 mm right paracentral disc protrusion with 6 mm extruded fragment extending caudally and encroaching on the descending right S1 nerve root. SOFT TISSUES: Unremarkable. MRI/Spine Lumbar (Routine) IMPRESSION: 8 mm right paracentral disc protrusion with 6 mm extruded fragment extending caudally. The disc protrusion encroaches on the descending right S1 nerve root. Electronically Signed: Marty Hall MD at 19:23 EST ,
== END | disposition home or self-care (01) ==
LOC: MRI 15:44
PROVIDERS: PCP Internal Medicine; Referring Provider Internal Medicine; Visit Provider Internal Medicine
DX: M54.16 Radiculopathy, lumbar region (principal)
CPT/HCPCS: 72148

== ENCOUNTER → 2023-12-23 | Outpatient (CLI) | payer MEDICARE, SELFPAY ==
--- NOTE | 2023-12-23 07:11 | US_ITS ---
STUDY: ABDOMINAL ULTRASOUND - RIGHT UPPER QUADRANT; ELASTOGRAPHY REASON FOR VISIT: Female, 68 years old. Fatty liver disease. TECHNIQUE: Ultrasound evaluation of the right upper quadrant was performed with real-time and static wadsworth-scale imaging. Point quantification shear wave elastography was performed ([employer]). TECHNICAL QUALITY: Adequate. COMPARISON: Comparison is made with prior study dated April 05, 2023. FINDINGS: Liver: The liver measures 16.8 cm. There is normal echogenicity of the liver. The bile ducts are within normal limits. There is hepatic color flow. The direction of portal flow is hepatopetal. There is no demonstrated mass lesion. Median liver stiffness measured 4.9 kPa. Gallbladder: The patient is status post cholecystectomy. Common Bile Duct (C.B.D.): The common bile duct measures 4.6 mm. Pancreas: There is normal echogenicity of the visualized pancreas. There is no demonstrated pancreatic mass or cyst. Right Kidney: Normal size of the right kidney. The right kidney measures 10 cm x 5.3 cm x 4.3 cm. Normal renal cortex. The right cortex measures 1.4 cm. There is no demonstrated renal mass or cyst. There is no right hydronephrosis. US/ABD Limited w/ Elastography IMPRESSION: 1. Liver stiffness measures 4.9 kPa compatible with F0-F1 (Normal to mild liver fibrosis) Metavir score. Electronically Signed: Yonny Méndez MD at 12:41 EDT ,
== END | disposition home or self-care (01) ==
LOC: US 07:11
PROVIDERS: PCP Internal Medicine; Referring Provider Internal Medicine; Visit Provider Internal Medicine
DX: K76.0 Fatty (change of) liver, not elsewhere classified (principal)
CPT/HCPCS: 76705; 76981

== ENCOUNTER 2023-12-29 08:14 | Day surgery (SDC) | payer MEDICARE, SELFPAY ==
--- NOTE | 2023-12-29 | IMM_PTH ---
PATIENT: NAVEED LE LOC: EN U#:[id number] AGE/SX: 68/F ROOM: RE12/29/[address]: Dr. Lan Philip DO : 1955 BED: DIS: 12/29/2023 SPEC #: [id number] RECD: 12/30/23 11:18 STATUS: MARIE REQ #: [id number] ISREAL: 12/29/23 00:[address]: Lan Philip DEPT: IMMUNOHISTOCHEMISTRY RECD BY: Jairo Palafox ENTERED: 12/30/23 11:20 SP TYPE: IMMUNO OTHR DR: Dr. Leia Kaiser DO Tissues: D - Colon, NOS Procedures: SMA (add) CD31 (add) CD34 (add) DESMIN (add) FACTOR VIII (add) MELAN-A (add) Vimentin (initial) S-100 (add) PHYSICIAN & INSTITUTION [place] [id number] SPECIMEN INFORMATION: Tissue Source: D- Sigmoid polyp Clinical Info: Abdominal pain, diarrhea, and constipation Specimen Number: [id number] CPT code: 58878,[id number] METHODOLOGY: Deparaffinized sections of prefer/formalin-fixed tissue or PAP/DQ stained slides are incubated with monoclonal/polyclonal antibodies/oligonucleotide probes. Localization is made via biotin free immunoperoxidase method. Appropriate controls are performed and reacted as expected. Results on target cell population are indicated in the following table: RESULTS: ANTIBODY / CLONE RESULT Block D Vimentin (V9) positive CD31 (PHILLIP/70A) negative Factor VIII (R Ag) negative CD34 (QBEnd-10) negative Actin (1A4) negative Desmin (CE-R-11) negative Melan A (A103) negative S-100 (4C4.9) positive These tests were developed and their performance characteristics determined by [facility]. They may not have been cleared or approved by the U.S. Food and Drug Administration. The FDA has determined that such clearance or approval is not necessary. The above immunohistochemical/dualISH markers are ordered and reviewed by the Pathologist. INTERPRETATION: D. Sigmoid polyp, biopsy: Mucosal neuroma. KERWIN/ 12/31/23
--- NOTE | 2023-12-29 | ESO_PTH ---
PATIENT: NAVEED LE LOC: EN U#:[id number] AGE/SX: 68/F ROOM: RE12/29/[address]: Dr. Lan Philip DO : 1955 BED: DIS: 12/29/2023 SPEC #: [id number] RECD: 12/29/23 12:22 STATUS: MARIE REChapo #: [id number] ISREAL: 12/29/23 00:[address]: Lan Philip DEPT: SURGICAL PATHOLOGY RECD BY: Vasyl Boone ENTERED: 12/29/23 12:22 SP TYPE: BRITTANEY SARMIENTO DR: Dr. Leia Kaiser DO Tissues: A - Duodenum, NOS B - Esophagus, NOS C - COLON BIOPSY D - Sigmoid colon biopsy Procedures: Special Stain Group II Surgery Specimen Level IV Alcian Blue/PAS (control) HEADER OPERATION: Colonoscopy, EGD, biopsy and hemostasis with gold probe PRE-OP DIAGNOSIS: Abdominal pain, diarrhea and constipation TISSUE SUBMITTED: A- Duodenum biopsy, B- Distal esophagus biopsy, C- Random colon biopsies, D- Sigmoid polyp MICROSCOPIC DIAGNOSIS A. Duodenum, biopsy: Fragments of duodenal mucosa, no pathologic diagnosis. B. Distal esophagus, biopsy: Fragments of gastric mucosa with chronic inflammation. Intestinal metaplasia (goblet cell metaplasia) not identified. See comment. C. Colon, random biopsy: Fragments of colonic mucosa, no pathologic diagnosis. D. Sigmoid polyp, biopsy: Hyperplastic polyp. Mucosa neuroma. See comment. SJ/mr 12/30/2023 COMMENT B. Alcian blue/PAS stain with matched control is used in the evaluation of the specimen. D. Immunohistochemistry ([id number]) supports the above diagnosis. Case has been reviewed in consultation with Dr. Womack who concurs with the above diagnosis. IDC:AM MICROSCOPIC DESCRIPTION Slides are reviewed. GROSS DESCRIPTION A. Received in fixative is one container labeled with the patient's name and designated Duodenum biopsy. The specimen consists of multiple irregular fragments of light mcdonald soft tissue that in aggregate measure 1.0 x 0.2 x 0.1 cm. The specimen is totally submitted in one cassette. B. Received in fixative is one container labeled with the patient's name and designated Distal esophagus biopsy. The specimen consists of two irregular fragments of light mcdonald soft tissue that in aggregate measure 0.6 x 0.3 x 0.1 cm. The specimen is totally submitted in one cassette. C. Received in fixative is one container labeled with the patient's name and designated Random colon biopsy. The specimen consists of multiple irregular fragments of light mcdonald soft tissue that in aggregate measure 1.5 x 0.3 x 0.1 cm. The specimen is totally submitted in one cassette. D. Received in fixative is one container labeled with the patient's name and designated Sigmoid polyp. The specimen consists of two irregular fragments of light mcdonald soft tissue that in aggregate measure 1.0 x 0.3 x 0.1 cm. The specimen is totally submitted in one cassette. KERWIN/ 12/29/23 TC:1 CPT:11190b5,39719
[2023-12-29 08:48] VITALS: BP 120/72; PULSE 66; RESP 17; TEMP 37; O2SAT 97; BMI 25.3
[2023-12-29] MEDS: Lactated Ringers 1,000 ML 15 ML IV (08:48)
--- NOTE | 2023-12-29 09:14 | PCM.HP.BLA ---
History and Physical Date of Admission: 12/29/23 NAVEED LE, is a 68 F who presents to the office today for PCP OV 5.12.03 for physical with history of brain tumor (meningloma, stable 2.6x8.84x2.47cm) and concerns regarding weight loss, indigestion which can cause sleep disturbance, loose stools. Additional history includes choking, fatty liver, colonic polyps (colonoscopy due 2024), hyperlipidemia. ? US 07.25.20 hepatic measurement 16.7cm; s/p cholecystectomy. ? Colonoscopy, screening 10.29.20 noting two sessile TA polyps; diverticulosis; internal hemorrhoids. ? Barium swallow 03.02.22 WNL. ? CT abd 03.19.22 hepatic steatosis with borderline hepatomegaly; s/p cholecystectomy; small hiatal hernia; small umbilical hernia. *BGI established 03.12.23 with difficulty with reflux managed with omeprazole 20mg QD but is not regular with administration. Additional difficulty with urgent loose stools but feels constipated. ? Biochemical ESR, CRP, LDH, amylase, lipase, RAST, GAME, ARNALDO comp, ANCA, GLENDY, celiac, chromogranin A, IBD without pertinent abnormality ? Stool calprotectin, elastase, fat, lactoferrin, EP, c.difficile, O/P, giardia WNL Contact 03.31.23 ongoing looser stools and feelings of constipation; recommend [employer] start. ? US and elastography 04.05.23 hepatic measurement 17.8cm with fatty infiltration, stiffness 7.2kPa Contact 8.10.05 with a lot of concern regarding her US/elastography. Referred to nutrition. OV 08.10.23 Singular incident since LV in which she had emergent incontinent loose stools with preceding abdominal cramping. Typically, she is bloated, tenesmus; BM occur multiple 5+/day with small amounts. [employer]greens were added and felt this was helping when she was taking it; has been using fiber supplement daily and is trying to increase dietary fiber, feels her water intake is poor. Contact 11.08.23 budesonide 6mg has been helpful and she is having a reduction of symptoms and would like to reduce to 3mg QD OV 12.23.23 pt reports minimal change in symptoms from last visit. After decreasing budesonide pt had two incidents of incontinent loose stools within the first week, but has not had another incident since. Pt reports 4-5 BM per day with small amounts. Pt reports that she has not been consistent with supergreens or fiber supplement. Pt reports that she is still working on increasing her fiber and water intake. Pt reports that she takes omeprazole as needed for heartburn. ROS Const Constitutional: Positive for weight change; No fatigue ENT ENT: No difficulty swallowing Gastro GI: Positive for abdominal pain, bloating, change in bowel habits, constipation, diarrhea, heartburn and excessive flatus; No belching, change in stool character, coffee ground emesis, cramping, difficulty swallowing, feeling full early, incontinent of stools, Vomiting blood/hematemesis, Blood in stool, loose stools, Black,tarry stools, nausea/dyspepsia, pain with swallowing, vomiting or other Musc Musculoskeletal: Positive for joint pain, back pain, numbness, stiffness, tingling, Arthritis and sciatica Skin Skin: Positive for dry skin; No yellowing of the eye or itchy eyes Neuro Neurology: Positive for numbness and tingling Psych Psychiatric: Positive for anxiety, No depression and Positive for inattentiveness Endo Endocrine: Positive for weight change; No fatigue Aller/Imm Allergy/Immunologic: No itchy eyes Zoran/Lymp Hematologic/Lymphatic: No easy bleeding or easy bruising Exam Const General: cooperative and comfortable Nutritional Appearance: average body habitus and well nourished [facility] Head: normal to inspection Ears: hearing grossly normal bilaterally Nose: external nose normal Face and sinus: normal facial exam Mouth: oral mucosae normal Throat: posterior oropharynx normal Eyes General: appearance normal, both eyes and all related structures Neck Neck: normal visual inspection Chest Chest palpation & inspection: normal inspection of the chest and normal palpation of entire chest wall Resp Effort & Inspection: normal respiratory effort Auscultation: Bilateral: Clear to Auscultation Cardio Palpation: normal PMI Rate: regular rate Rhythm: regular rhythm GI Inspection: normal to inspection Auscultation: normal bowel sounds Percussion: normal to percussion Palpation: no hepatosplenomegaly Skin General: no rashes or lesions noted Neuro General: patient alert Extrem General: normal to inspection Psych Affect: normal affect Quality Reporting Tobacco Screening ([facility] 138) Smoking Status: Never smoker Assessment and Plan Assessment and Plan (1) Alternating constipation and diarrhea: Status: Chronic (2) Diarrhea: Status: Deleted Qualifiers: Diarrhea type: functional diarrhea Qualified Code(s): K59.1 - Functional diarrhea Plan: Differential diagnosis for her urgent diarrhea does include fecal incontinence, overflow diarrhea, accelerated gastrocolic reflex, bile acid induced diarrhea, microscopic colitis, less likely inflammatory bowel disease. She will undergo biochemical testing and also stool testing. We will also perform a gastric emptying study to see if she does have functional diarrhea. I would like also to get bile acids in the stool along with testing for enteric pathogens. Pending the work-up she may need EGD and colonoscopy with biopsies. We will start her on budesonide therapy 6 mg a day. (3) Abdominal pain: Status: Deleted Qualifiers: Abdominal location: left lower quadrant Qualified Code(s): R10.32 - Left lower quadrant pain Plan: Differential diagnosis for abdominal pain does include small bacterial overgrowth, H. pylori associated gastritis, exocrine pancreatic insufficiency. She will get HIDA scan and gastric emptying study. Further recommendations to follow. I have examined the patient and the H&P has been reviewed. There are no clinical changes since date of exam.
[2023-12-29 09:52] VITALS: BP 100/57; BP 120/72; PULSE 69; RESP 16; TEMP 36.6; O2SAT 97
[2023-12-29 09:55] VITALS: BP 120/72; BP 96/50; PULSE 69; RESP 16; O2SAT 95
--- NOTE | 2023-12-29 09:56 | OP.EGD_ITS ---
Patient Name: Rosa Lewis Procedure Date: 12/29/2023 9:17 AM Date of : 1955 Age: 68 Procedure: Upper GI endoscopy Indications: Epigastric abdominal pain, Heartburn, Failure to respond to medical treatment Providers: Lan Philip DO Referring MD: Leia Kaiser Medicines: Monitored Anesthesia Care Patient Profile: This is a 68 year old female. Refer to note in patient chart for documentation of history and physical. Patient has symptoms of chronic abdominal cramping, chronic epigastric abdominal pain and chronic heartburn. Complications: No immediate complications. Procedure: Pre-Anesthesia Assessment: - Prior to the procedure, a History and Physical was performed, and patient medications and allergies were reviewed. The patient is competent. The risks and benefits of the procedure and the sedation options and risks were discussed with the patient. All questions were answered and informed consent was obtained. Patient identification and proposed procedure were verified by the physician in the pre-procedure area. Mental Status Examination: alert and oriented. Airway Examination: normal oropharyngeal airway and neck mobility. Respiratory Examination: clear to auscultation. CV Examination: normal. Prophylactic Antibiotics: The patient does not require prophylactic antibiotics. Prior Anticoagulants: The patient has taken no anticoagulant or antiplatelet agents. ASA Grade Assessment: II - A patient with mild systemic disease. After reviewing the risks and benefits, the patient was deemed in satisfactory condition to undergo the procedure. The anesthesia plan was to use monitored anesthesia care (MAC). Immediately prior to administration of medications, the patient was re-assessed for adequacy to receive sedatives. The heart rate, respiratory rate, oxygen saturations, blood pressure, adequacy of pulmonary ventilation, and response to care were monitored throughout the procedure. The physical status of the patient was re-assessed after the procedure. After obtaining informed consent, the endoscope was passed under direct vision. Throughout the procedure, the patient's blood pressure, pulse, and oxygen saturations were monitored continuously. The Colonoscope was introduced through the mouth, and advanced to the second part of duodenum. The upper GI endoscopy was accomplished without difficulty. The patient tolerated the procedure well. Scope In: 9:26:02 AM Scope Out: 9:32:54 AM Total Procedure Duration Time 0 hours 6 minutes 52 seconds Findings: LA Grade B (one or more mucosal breaks greater than 5 mm, not extending between the tops of two mucosal folds) esophagitis with no bleeding was found 35 to 39 cm from the incisors. Biopsies were taken with a cold forceps for histology. Verification of patient identification for the specimen was done. Estimated blood loss was minimal. A medium-sized hiatal hernia was present. A few 5 mm hyperplastic polyps with no bleeding and no stigmata of recent bleeding were found in the gastric fundus. Patchy mildly erythematous mucosa without active bleeding and with no stigmata of bleeding was found in the duodenal bulb. Biopsies were taken with a cold forceps for histology. Verification of patient identification for the specimen was done. Estimated blood loss was minimal. Impression: - LA Grade B reflux esophagitis with no bleeding. Biopsied. - Medium-sized hiatal hernia. - A few gastric polyps. - Erythematous duodenopathy. Biopsied. Recommendation: - Discharge patient to home. - Resume previous diet. - Continue present medications. - Await pathology results. Procedure Code(s): --- Professional --- 48168, Esophagogastroduodenoscopy, flexible, transoral; with biopsy, single or multiple CPT copyright 2021 [employer]. All rights reserved. The codes documented in this report are preliminary and upon registered nurse cardiac telemetry review may be revised to meet current compliance requirements. Lan Philip DO 12/29/2023 9:55:35 AM This report has been signed electronically. Number of Addenda: 0 Note Initiated On: 12/29/2023 9:17 AM
--- NOTE | 2023-12-29 09:56 | OP.CCLET_ITS ---
12/29/2023 Leia Kaiser Re : Upper GI endoscopy procedure for Rosa Kaiser This procedure was performed on Friday, December 29, 2023. My impressions and recommendations are as follows: Impressions : - LA Grade B reflux esophagitis with no bleeding. Biopsied. - Medium-sized hiatal hernia. - A few gastric polyps. - Erythematous duodenopathy. Biopsied. Recommendations : - Discharge patient to home. - Resume previous diet. - Continue present medications. - Await pathology results. My findings are described in the full procedure note, which is enclosed. If I can be of further assistance, please feel free to contact me at . Sincerely, Lan Philip DO 12/29/2023 9:55:35 AM This report has been signed electronically.
[2023-12-29 10:00] VITALS: BP 120/72; BP 87/60; PULSE 65; RESP 16; O2SAT 96
--- NOTE | 2023-12-29 10:01 | OP.CCLET_ITS ---
12/29/2023 Leia Kaiser Re : Colonoscopy procedure for Rosa Kaiser This procedure was performed on Friday, December 29, 2023. My impressions and recommendations are as follows: Impressions : - Diverticulosis in the recto-sigmoid colon, in the sigmoid colon and in the descending colon. - Two 6 mm polyps in the sigmoid colon, removed with a cold snare. Resected and retrieved. - Congested mucosa at the splenic flexure, at the hepatic flexure and in the cecum. Biopsied. - Congested mucosa in the terminal ileum. Recommendations : - Discharge patient to home. - Resume previous diet. - Continue present medications. - Await pathology results. - Repeat colonoscopy in 5 years for surveillance. My findings are described in the full procedure note, which is enclosed. If I can be of further assistance, please feel free to contact me at . Sincerely, Lan Philip, 12/29/2023 10:00:44 AM This report has been signed electronically.
--- NOTE | 2023-12-29 10:01 | OP.COLON_ITS ---
Patient Name: Rosa Lewis Procedure Date: 12/29/2023 9:33 AM Date of : 1955 Age: 68 Procedure: Colonoscopy Indications: Screening for colorectal malignant neoplasm Providers: DO Kassie Green MD: Leia Kaiser Medicines: Monitored Anesthesia Care Patient Profile: This is a 68 year old female. Refer to note in patient chart for documentation of history and physical. Patient has symptoms of chronic abdominal cramping, chronic epigastric abdominal pain and chronic heartburn. Last Colonoscopy: 3 years ago. Complications: No immediate complications. Procedure: Pre-Anesthesia Assessment: - Prior to the procedure, a History and Physical was performed, and patient medications and allergies were reviewed. The patient is competent. The risks and benefits of the procedure and the sedation options and risks were discussed with the patient. All questions were answered and informed consent was obtained. Patient identification and proposed procedure were verified by the physician in the pre-procedure area. Mental Status Examination: alert and oriented. Airway Examination: normal oropharyngeal airway and neck mobility. Respiratory Examination: clear to auscultation. CV Examination: normal. Prophylactic Antibiotics: The patient does not require prophylactic antibiotics. Prior Anticoagulants: The patient has taken no anticoagulant or antiplatelet agents. ASA Grade Assessment: II - A patient with mild systemic disease. After reviewing the risks and benefits, the patient was deemed in satisfactory condition to undergo the procedure. The anesthesia plan was to use monitored anesthesia care (MAC). Immediately prior to administration of medications, the patient was re-assessed for adequacy to receive sedatives. The heart rate, respiratory rate, oxygen saturations, blood pressure, adequacy of pulmonary ventilation, and response to care were monitored throughout the procedure. The physical status of the patient was re-assessed after the procedure. After I obtained informed consent, the scope was passed under direct vision. Throughout the procedure, the patient's blood pressure, pulse, and oxygen saturations were monitored continuously. The Colonoscope was introduced through the anus and advanced to the terminal ileum. The colonoscopy was performed without difficulty. The patient tolerated the procedure well. The quality of the bowel preparation was adequate. The terminal ileum, ileocecal valve, appendiceal orifice, and rectum were photographed. Scope In: 9:34:36 AM Scope Withdrawal Time 0 hours 9 minutes 18 seconds Scope Out: 9:47:46 AM Total Procedure Duration Time 0 hours 13 minutes 10 seconds Findings: The perianal and digital rectal examinations were normal. Multiple small and large-mouthed diverticula were found in the recto-sigmoid colon, sigmoid colon and descending colon. Two sessile polyps were found in the sigmoid colon. The polyps were 6 mm in size. These polyps were removed with a cold snare. Resection and retrieval were complete. Verification of patient identification for the specimen was done. Estimated blood loss was minimal. An area of mildly congested mucosa was found at the splenic flexure, at the hepatic flexure and in the cecum. Biopsies were taken with a cold forceps for histology. Verification of patient identification for the specimen was done. Estimated blood loss was minimal. An area of the terminal ileum was congested. Impression: - Diverticulosis in the recto-sigmoid colon, in the sigmoid colon and in the descending colon. - Two 6 mm polyps in the sigmoid colon, removed with a cold snare. Resected and retrieved. - Congested mucosa at the splenic flexure, at the hepatic flexure and in the cecum. Biopsied. - Congested mucosa in the terminal ileum. Recommendation: - Discharge patient to home. - Resume previous diet. - Continue present medications. - Await pathology results. - Repeat colonoscopy in 5 years for surveillance. Procedure Code(s): --- Professional --- 81603, Colonoscopy, flexible; with removal of tumor(s), polyp(s), or other lesion(s) by snare technique 06659, 59, Colonoscopy, flexible; with biopsy, single or multiple CPT copyright 2021 [employer]. All rights reserved. The codes documented in this report are preliminary and upon end frazer review may be revised to meet current compliance requirements. Lan Philip DO 12/29/2023 10:00:44 AM This report has been signed electronically. Number of Addenda: 0 Note Initiated On: 12/29/2023 9:33 AM
[2023-12-29 10:05] VITALS: BP 120/72; BP 93/61; PULSE 67; RESP 16; TEMP 36.4; O2SAT 98
[2023-12-29 10:23] VITALS: BP 120/72
== END 2023-12-29 10:34 | disposition home or self-care (01) ==
LOC: EN 08:15 → AC 08:16
PROVIDERS: PCP Internal Medicine; Referring Provider Internal Medicine; Visit Provider Internal Medicine Gastroenterology
PROC: 0DJD8ZZ Inspection of Lower Intestinal Tract, Via Natural or Artificial Opening Endoscopic (ICD-10-PCS; CPT 45378; principal; 2023-12-29 09:10)
DX: Z12.11 Encounter for screening for malignant neoplasm of colon (principal); K57.30 Diverticulosis of large intestine without perforation or abscess without bleeding; D12.5 Benign neoplasm of sigmoid colon; K31.7 Polyp of stomach and duodenum; K44.9 Diaphragmatic hernia without obstruction or gangrene; K21.00 Gastro-esophageal reflux disease with esophagitis, without bleeding; K31.89 Other diseases of stomach and duodenum; G89.29 Other chronic pain; I10 Essential (primary) hypertension; Z79.899 Other long term (current) drug therapy
CPT/HCPCS: 45380; 45385; 43239; 88305; 88313; 88341; 88342; J7120; J2405

== ENCOUNTER 2024-03-01 10:03 | Emergency (ER) | payer MEDICARE, SELFPAY ==
[2024-03-01 10:03] VITALS: BP 176/90; PULSE 87; RESP 26; TEMP 36.4; O2SAT 98; BMI 25.8
--- NOTE | 2024-03-01 10:22 | EDS_ITS ---
HPI History of Present Illness Chief Complaint: Back Informant: patient and spouse/S.O. Onset/Context/Timing Onset: Days and Month(s) Context: Gradual Onset Timing: Continuous Quality: Sharp and Burning Location: Lumbar Current Severity: Moderate Maximum Severity: Severe Worsened by: improves with Movement Relieved by: Nothing Associated Symptoms Associated Symptoms: Radiation to Right Leg; Negative for Numbness, Tingling, Fever, Abdominal Pain, Dysuria, Unable to Ambulate, Unable to Transfer, Urinary Retention, Urinary Incontinence, Constipation or Fecal Incontinence Narrative Narrative: 69-year-old female has a known degenerative lumbar disc. She had MRI and this worked up in July. She initially was doing well and recently over the last 2 weeks the pains gotten worse and more so over the last several days. Denies any fever. No fall or trauma. No bowel or bladder incontinence or retention. She does have pain going from her lower back radiating down her right buttock behind her right hamstring. Denies any weakness or numbness. She has never had back surgery. She is on gabapentin. Initially it got better and now it is worse again. She has had injections done both by Dr. Mcbride and has seen Dr. Casas. She has an upcoming appointment to see Dr. Cheo Hernandez at the [facility] next . Today is primarily a pain control issue. Prior similar symptoms: Yes Recent Illness/Hospitalization: No PFSH [facility] Medical History Post-menopausal Alcohol use History of meningioma of the brain Injury of back History of hiatal hernia History of diverticulitis Gastric reflux Non-smoker History of stress test PONV (postoperative nausea and vomiting) Benign meningioma Brain tumor Hyperlipidemia Anxiety DUANE (obstructive sleep apnea) HTN (hypertension) GERD (gastroesophageal reflux disease) IBS (irritable bowel syndrome) Colon polyps Fatty liver Osteoarthritis Degenerative disc disease, cervical Neck pain Osteoporosis Overactive bladder Apnea RUQ pain Urinary incontinence Memory loss Hypercalciuria Humeral fracture Choking HLA B27 (HLA B27 positive) Home Medications ?Medication ?Instructions ?Recorded ?Last Taken ?Type cholecalciferol (vitamin D3) 25 25 mcg PO DAILY 08/17/23 Unknown History mcg (1,000 unit) tablet denosumab 60 mg/mL subcutaneous 60 mg subcut [id number] 08/17/23 Unknown History syringe (Prolia) escitalopram oxalate 10 mg tablet 15 mg PO DAILY 08/17/23 Unknown History omeprazole 20 mg capsule,delayed 20 mg PO DAILY PRN GERD 08/17/23 Unknown History release metoprolol succinate 100 mg 100 mg PO DAILY 12/27/23 Unknown History tablet,extended release 24 hr gabapentin 300 mg capsule 300 mg PO TID 03/01/24 Unknown History oxycodone-acetaminophen 5 mg-325 1 tab PO Q4H PRN pain 4 days #14 03/01/24 Unknown Rx mg tablet (Percocet) tabs prednisone 20 mg tablet 40 mg (2 x 20 mg) PO DAILY 10 days 03/01/24 Unknown Rx #20 tabs rosuvastatin 5 mg tablet 5 mg PO DAILY 03/01/24 Unknown History Allergy/AdvReac Type Severity Reaction Status Date / Time hydrochlorothiazide Allergy Intermediate Rash Verified 03/01/24 10:03 codeine AdvReac Nausea Verified 03/01/24 10:03 Family History Brother Hiatal hernia Prostate cancer Brother Esophageal cancer Mother TIA (transient ischemic attack) Father Kidney disease Sister Glioblastoma Surgical History History of nasal surgery History of toe surgery History of laparoscopy History of ovarian cystectomy History of meniscectomy of right knee History of colonoscopy History of thymoma History of cholecystectomy History of cataract extraction Social History Smoking Status: Never smoker alcohol intake: current alcohol intake frequency: a few times a month substance use type: does not use ROS ROS ED ROS Narrative Back pain. Denies recent illness. No fever. Review of Systems ROS Unobtainable: Denies due to encephalopathy Constitutional Constitutional ED: Denies chills or fever(s) Eyes Eyes: Denies blurry vision ENT ENT ED: Denies ear pain Cardiovascular Cardiovascular: Denies chest pain Respiratory/Chest Respiratory/Chest: Denies dyspnea Gastrointestinal Gastrointestinal: Denies abdominal pain Genitourinary Genitourinary ED: Denies dysuria or hematuria Musculoskeletal Musculoskeletal: Reports back pain; Denies arthralgias, myalgias or neck pain Integumentary Denies abscess or Abrasions Neurologic Neurologic: Denies headache(s) Psychiatric Psychiatric: Denies anxiety Endocrine Endocrinology: Denies cold intolerance Hematologic/Lymphatic Hematologic/Lymphatic: Denies easy bleeding or easy bruising Allergic/Immunologic Allergic/Immunologic ED: Denies mouth swelling, tongue swelling or urticaria EXAM Physical Exam Narrative Exam Narrative: Six 9-year-old female lying on her back. at bedside. Vital signs stable afebrile. H EENT exam unremarkable. Neck nontender. Lungs clear to auscultation bilaterally. Heart regular rhythm rate about 90 no murmur. Chest wall ribs nontender. Abdomen soft nontender. No peritoneal signs. Moving all 4 extremities. Normal motor strength both upper and lower extremities. 5 out of 5 power driven brush maker strength. Dorsi plantarflexion intact. She can lift either leg off the bed. She really does not have a specifically positive straight leg raise may be slightly on the right. She has 5 out of 5 dorsi and plantarflexion. Normal leg sensation. No medial thigh numbness or tingling. No cauda equina. Back there is no reproducible pain over the thoracic or lumbar spine or the SI joints. There is no redness or warmth or bruising. Neurologically she is awake and alert. Has normal motor strength both upper and lower extremities and sensation. No cauda equina. Const Vital Signs: 03/01/24 10:03 Temperature 97.6 F L Temperature Source Temporal Pulse Rate 87 Respiratory Rate 26 H Blood Pressure 176/90 H Blood Pressure Mean 118 Pulse Ox 98 Oxygen Delivery Method Room Air Positive well nourished and well developed; Negative for cachectic, contractures or unkempt General Appearance ED: well developed and NAD; Negative for unkempt, cachectic, contractures or pallor Nutritional Appearance: Negative for cachectic HEENT Reports moist mucous membranes Negative for trauma or tenderness Eyes PERRL and EOMs intact bilaterally General Eye ED: Negative for pale conjunctiva or scleral icterus Neck no lymphadenopathy, supple and no JVD General: Negative for tenderness Thyroid: Negative for other Chest Wall Chest: Negative for other Resp normal respiratory effort and clear to auscultation bilaterally Effort and Inspection: Negative for pain with movement Auscultation: Negative for rales, rhonchi, wheezes or diminished lung sounds Cardio regular rate, regular rhythm, S1 normal heart sound, S2 normal heart sound and no murmurs Palpation: Negative for palpable S3 Rate: Negative for bradycardia or tachycardic Rhythm: Negative for abnormal rhythm Bruits: Negative for other GI normal to inspection, nondistended, normoactive bowel sounds, soft to palpation, non-tender, non-distended and no masses Inspection: Negative for abdominal distention Auscultation: Negative for hyperactive bowel sounds Palpation: Negative for tender, guarding or rebound tenderness present Back/Spine normal to inspection and no thoracic nor lumbar tenderness Back/Spine Narrative: No reproducible back or SI pain. Normal back exam. No signs of bruising, redness or warmth. General Back: Negative for CVA tenderness Cervical Spine: Negative for cervical spine tenderness Thoracic Spine / Upper Back: Negative for paraspinal muscle tenderness Lumbar Spine / Lower Back: Negative for ROM limited Extremity normal to inspection and no clubbing, cyanosis or edema General Extremety ED: Negative for edema or tenderness General Extremity: Negative for edema Neuro oriented x3 and no sensory deficits noted Sensorium / Orientation: alert; Negative for confused, lethargic or stuporous Motor Exam: strength 5/5 throughout Psych mental status grossly normal Appearance: Negative for unkempt Attitude: No agitated Mood & Affect: Negative for depressed, sad or tearful Skin no rashes or lesions noted and no wounds General Skin Exam: Negative for jaundice or pallor Lesions: No lesion noted Rashes: No rashes noted Trauma: Negative for abrasion or puncture Wounds: Negative for wounds noted MDM MDM MDM Narrative Medical decision making narrative: 69-year-old female with known degenerative disc disease of her lower lumbar spine with radiculopathy down her right buttock and right hamstring. Has normal motor strength and sensation. No cauda equina. Will be treated with IV Dilaudid and Zofran and reassess. She is already been seen by orthopedic spine and has an appointment to see [facility] next . Today is more of a pain control issue. Multiple repeat exams patient's pain improved. She will be given another dose of morphine prior to discharge. Both lower extremities remain neurovascularly intact with normal strength and sensation. No cauda equina. Normal dorsi plantarflexion. We discussed that most likely she has an out of 4, 5, S1 disc with radiculopathy. She will be written for Percocet for pain at home. Placed back on prednisone 40 mg a day for 10 days. An outpatient follow-up with the [facility] that she is scheduled for next week. She knows return if worsening intractable pain weakness or numbness. Both her and her are comfortable with the plan. History & Record Review Discussion w/independent historian: Patient and Family Additional record(s) reviewed:: Prior inpatient record, Prior outpatient record, Prior ED visit, Prior labs and No prior records Discharge Plan Triage Chief Complaint: Back ED Provider: Alexandro Johnson Dx/Rx/DC Orders Clinical Impression: Lumbar disc prolapse with compression radiculopathy Instructions: ED Herniated Intervertebral Disk Prescriptions: New oxycodone-acetaminophen [Percocet] 5-325 mg tablet 1 tab PO Q4H PRN (Reason: pain) 4 Days Qty: 14 0RF prednisone 20 mg tablet 40 mg PO DAILY 10 Days Qty: 20 0RF No Action omeprazole 20 mg capsule,delayed release(DR/EC) 20 mg PO DAILY PRN (Reason: GERD) Prolia 60 mg/mL syringe 60 mg subcut [id number] cholecalciferol (vitamin D3) 25 mcg (1,000 unit) tablet 25 mcg PO DAILY escitalopram oxalate 10 mg tablet 15 mg PO DAILY metoprolol succinate 100 mg tablet extended release 24 hr 100 mg PO DAILY gabapentin 300 mg capsule 300 mg PO TID rosuvastatin 5 mg tablet 5 mg PO DAILY Primary Care Provider: Leia Kaiser Referrals: Leia Kaiser DO [Primary Care Provider] - As Needed Activity Restrictions/Additional Instructions: Prednisone the steroid to decrease inflammation of the disc 40 mg once a day for 10 days. Start that today. Percocet the painkiller as needed. Take it with food on your stomach. Make sure you are drinking plenty of water, fruits, vegetables and fiber to prevent constipation. May also need a stool softener. Continue your gabapentin. Call and follow-up with the [facility] spine doctor soon as possible. Return if intractable pain, leg weakness or bowel or bladder incontinence. Print Language: Syriac Disposition Disposition: Home, Self Care
[2024-03-01] MEDS: Ondansetron 4 MG/2 ML Vial IV ×2 (10:29→12:25)
[2024-03-01] MEDS: HYDROmorphone 1 MG/ML Syringe IV (10:29)
[2024-03-01 12:22] VITALS: BP 149/80; PULSE 80; RESP 16; TEMP 36.8; O2SAT 98
[2024-03-01] MEDS: morphine 8 MG/ML Syringe 6 MG IV (12:25)
== END 2024-03-01 12:54 | disposition home or self-care (01) ==
PROVIDERS: Emergency Provider Emergency Medicine; PCP Internal Medicine; Visit Provider Emergency Medicine
DX: M51.16 Intervertebral disc disorders with radiculopathy, lumbar region (principal); G47.33 Obstructive sleep apnea (adult) (pediatric); Z79.899 Other long term (current) drug therapy
CPT/HCPCS: 96374; 96375; 96376; 99282; J7030; A4216; J2405

== ENCOUNTER 2024-05-18 10:30 | Outpatient (RCR) | payer MEDICARE, SELFPAY ==
--- NOTE | 2024-04-11 15:52 | HP.PTEVAL ---
Patient's Visit Information Visit Information Visit Information: NAVEED LE is a 69 year old F referred to Physical Therapy by MERYL Chakraborty with a diagnosis of HNP s/p discectomy 03/22. Date of Evaluation: 04/11/24 Physical Therapist: Jefry Smith, DPT, OCS, CSCS Visit Plan Frequency: 3x /Week Duration: 4-6 Weeks Plan: 3x/week for 3-6 weeks around [employer] 05/01 given at IE: DKC, PPU, trunk rot 10x, quad stretch 30 5x and hip abd SLR 3x10 all 2x/day and walk 1 mile daily In therapy, please progress to core and hip strength pt can do at home or on vacation as she will be out of town alot. Ensure HS stretch and progression of fucniton back toward pickleball as toerated. ice as needed. Subjective Subjective: Had sciatic issues for >1 yr and failed conservative treatment adn no had a microdiscectomy on 03/22/24, laminectomy facetotomy. and [id number]. It helped to alleviate her R leg pain whihc is only slightly present now. 05/23 some times prior. Does still have some slight pain in r LB more soreness. wearing brace much of time to LB. Walking a mile each day. No weakness. Sleeping OK but was tough prior to surgery. Retired teacher. basic ADLS, Doing everything I, but precautions include not lifting >10 # and avoid bending. Hobbbies: Likes to bike, read and walk and play pickleball. Want to get back to these. Travels. May 01 will go to [place] [place] and [employer]. Wants to lift weights db inbasement or at [place] Pain R LB: Pain Intensity (Out of 10): 1 Pain Intensity Range: 0 and 2 Objective Objective: Walks without deviations into PT I, transfers I, steps recirpocally I with rail. incision is small posterior and healed up withouut redness heat or swelling. LB AROM ext min limited, SB full, flexion is tight but no pain. weakness evident in core with SLS R leg and contralateral hip rotation with flexion testing and leaning with sitting. LE 4/5 without myotomal problems. reflexes 1/3 patella adn achilles B Sensation LE WNL to gross light touch. quad R>L tight, HS min tight B. Balance/Special Test Scores Oswestry Low Back Score: 5 Goals Goal 1:: I appropriate HEP for core and hip strength Goal Time Frame: 4-6 Weeks Goal 2:: Pt feel 99% back to normal and tolerate julio moutnain vacation without setbacks Goal Time Frame: 4-6 Weeks Goal 3:: back oswestry 0 Goal Time Frame: 4-6 Weeks Goal 4:: Back to pickleball and walking 2 miles without deficits Goal Time Frame: 4-6 Weeks Rehabilitation Potential Physical Therapy Diagnosis: stiffness and soreness and limited activity after surgery Rehabilitation Potential: Good Anticipated Interventions Patient/Client Instruction: Educate patient on: Condition and Plan of Care For the Purpose of:: To decrease pain, To increase ROM, To improve nutrient delivery to tissue, To improve muscle performance and motor function and To increase tolerance to activity/condition/position Therapeutic Exercise to Include: Strength training, Postural training, Passive ROM, Active ROM and Dynamic Lumbar Stabilization For the Purpose of:: To decrease pain, To increase ROM, To improve nutrient delivery to tissue, To improve muscle performance and motor function and To increase tolerance to activity/condition/position Manual Therapy Techniques to Include: Scar massage and Soft tissue mobilization For the Purpose of:: To improve nutrient delivery to tissue Cryotherapy (ice pack, ice massage): Yes For the Purpose of:: To decrease swelling/inflammation Text: Thank you for the opportunity to evaluate your patient. For Medicare and Medicare HMO plans, please review the plan of care and approve it. It will need to be FAXED BACK to us at [phone] for Medicare purposes. For Medicare only, by signing this I certify the plan of care. Please let me know if there are questions or concerns regarding this plan of care. Physician Signature: Date:
--- NOTE | 2024-04-11 15:53 | HP.PTEVAL ---
Patient's Visit Information Visit Information Visit Information: NAVEED LE is a 69 year old F referred to Physical Therapy by MERYL Chakraborty with a diagnosis of HNP s/p discectomy 03/22. Date of Evaluation: 04/11/24 Physical Therapist: Jefry Smith, DPT, OCS, CSCS Visit Plan Frequency: 3x /Week Duration: 4-6 Weeks Plan: 3x/week for 3-6 weeks around [employer] 05/01 given at IE: DKC, PPU, trunk rot 10x, quad stretch 30 5x and hip abd SLR 3x10 all 2x/day and walk 1 mile daily In therapy, please progress to core and hip strength pt can do at home or on vacation as she will be out of town alot. Ensure HS stretch and progression of fucniton back toward pickleball as toerated. ice as needed. Subjective Subjective: Had sciatic issues for >1 yr and failed conservative treatment adn no had a microdiscectomy on 03/22/24, laminectomy facetotomy. and [id number]. It helped to alleviate her R leg pain whihc is only slightly present now. 05/23 some times prior. Does still have some slight pain in r LB more soreness. wearing brace much of time to LB. Walking a mile each day. No weakness. Sleeping OK but was tough prior to surgery. Retired teacher. basic ADLS, Doing everything I, but precautions include not lifting >10 # and avoid bending. Hobbbies: Likes to bike, read and walk and play pickleball. Want to get back to these. Travels. May 01 will go to [employer] [place] [employer]. Wants to lift weights db inbasement or at [place] Pain R LB: Pain Intensity (Out of 10): 1 Pain Intensity Range: 0 and 2 Objective Objective: Walks without deviations into PT I, transfers I, steps recirpocally I with rail. incision is small posterior and healed up withouut redness heat or swelling. LB AROM ext min limited, SB full, flexion is tight but no pain. weakness evident in core with SLS R leg and contralateral hip rotation with flexion testing and leaning with sitting. LE 4/5 without myotomal problems. reflexes 1/3 patella adn achilles B Sensation LE WNL to gross light touch. quad R>L tight, HS min tight B. Balance/Special Test Scores Oswestry Low Back Score: 5 Goals Goal 1:: I appropriate HEP for core and hip strength Goal Time Frame: 4-6 Weeks Goal 2:: Pt feel 99% back to normal and tolerate julio moutnain vacation without setbacks Goal Time Frame: 4-6 Weeks Goal 3:: back oswestry 0 Goal Time Frame: 4-6 Weeks Goal 4:: Back to pickleball and walking 2 miles without deficits Goal Time Frame: 4-6 Weeks Rehabilitation Potential Physical Therapy Diagnosis: stiffness and soreness and limited activity after surgery Rehabilitation Potential: Good Anticipated Interventions Patient/Client Instruction: Educate patient on: Condition and Plan of Care For the Purpose of:: To decrease pain, To increase ROM, To improve nutrient delivery to tissue, To improve muscle performance and motor function and To increase tolerance to activity/condition/position Therapeutic Exercise to Include: Strength training, Postural training, Passive ROM, Active ROM and Dynamic Lumbar Stabilization For the Purpose of:: To decrease pain, To increase ROM, To improve nutrient delivery to tissue, To improve muscle performance and motor function and To increase tolerance to activity/condition/position Manual Therapy Techniques to Include: Scar massage and Soft tissue mobilization For the Purpose of:: To improve nutrient delivery to tissue Cryotherapy (ice pack, ice massage): Yes For the Purpose of:: To decrease swelling/inflammation Text: Thank you for the opportunity to evaluate your patient. For Medicare and Medicare HMO plans, please review the plan of care and approve it. It will need to be FAXED BACK to us at [phone] for Medicare purposes. For Medicare only, by signing this I certify the plan of care. Please let me know if there are questions or concerns regarding this plan of care. Physician Signature: Date:
--- NOTE | 2024-05-18 10:58 | HP.PTDCSUM ---
Discharge Summary D/C summary: It has been my pleasure to treat NAVEED LE referred by Mariia Sandoval NP-Mau, with the diagnosis of HNP s/p discectomy 03/22 for a total of 10 visit(s). Discharge Date: 05/18/24 Please see the following information for a summary of their discharge status. Subjective Subjective: Vacation went well. No problems with the back. Gets a little L hip goofyness now and then when been walking for a while but did not hold her back or get worse. Has not played pickle ball yet. No f/u needed with doctor. No activity avoidance on vacation, did well, brought brace but did not need it. No back pain Pain R LB: Pain Intensity (Out of 10): 1 Overall Improvement % Improvement: 100 Objective Objective/Function: Full Back AROM without pain or problems in back. R HS tightness but not limiting. Walking normal and no gait deviations No concerns and will continue on own at home. Goals Goal 1:: I appropriate HEP for core and hip strength Goal Progress: Goal Met Goal 2:: Pt feel 99% back to normal and tolerate julio moutnain vacation without setbacks Goal Progress: Goal Met Goal 3:: back oswestry 0 Goal Progress: Goal Met Goal 4:: Back to pickleball and walking 2 miles without deficits Goal Progress: walk yes, Plan Plan: d/c to HEp D/C Information d/c sentence: If there are questions or concerns regarding this patient's physical therapy, please feel free to call me at [phone]. Thank you for the referral of this patient. Sincerely, Jefry Smith, DPT, OCS, CSCS Balance/Gait/Functional tests Balance/Special Test Scores Oswestry Low Back Score: 0 Improvement % Improvement: 100
== END 2024-05-18 19:00 | disposition home or self-care (01) ==
LOC: PT 10:30
PROVIDERS: PCP Internal Medicine; Referring Provider Nurse Practitioner; Visit Provider Nurse Practitioner
DX: M51.26 Other intervertebral disc displacement, lumbar region (principal)
CPT/HCPCS: 97110; 97161; 97164

== ENCOUNTER → 2024-10-20 | Outpatient (CLI) | payer MEDICARE, SELFPAY ==
--- NOTE | 2024-10-20 06:38 | MRI_ITS ---
PROCEDURE: BRAIN W/WO CONTRAST REASON FOR EXAM: Headache; history of meningioma. TECHNIQUE: Multiplanar, multisequence MRI of the brain with intravenous gadolinium-based contrast. COMPARISON: None. FINDINGS: Abutting the left anterior falx is a 29 x 29 x 29 mm hyperenhancing lesion most compatible with a meningioma. There is local mass effect. No midline shift. No evidence of acute hemorrhage or infarction. Right maxillary sinus retention cyst. Absent right houlton ocular lens. Mild ethmoid sinus mucosal thickening. MRI/Brain W/WO Contrast IMPRESSION: Mass abutting the left anterior falx with hyperenhancement and most compatible with a meningioma. Reading Location: [id number]
== END | disposition home or self-care (01) ==
LOC: MRI 06:31
PROVIDERS: PCP Internal Medicine; Referring Provider Internal Medicine; Visit Provider Internal Medicine
DX: R51.9 Headache, unspecified (principal)
CPT/HCPCS: 70553; A9575

== ENCOUNTER → 2024-11-15 | Outpatient (CLI) | payer MEDICARE, SELFPAY ==
--- NOTE | 2024-11-15 08:51 | US_ITS ---
PROCEDURE: ABD LIMITED W/ ELASTOGRAPHY REASON FOR EXAM: Fatty infiltration of the liver. COMPARISON: Comparison is made with prior examination dated December 23, 2023. TECHNIQUE: Right upper quadrant abdominal ultrasound. Jon ElastQ Imaging shear wave elastography for non-invasive assessment of liver tissue stiffness. Jon EPIQ Elite. FINDINGS: LIVER: Size: Unremarkable Length: 15.8 cm Echotexture: Normal Contour: Normal Lesions: None identified Elastography: EQI Med: 7.3 kPa EQI Med Ayden: 1.55 m/s IQR/Med: 7.1 %* GALLBLADDER: Surgically absent. COMMON BILE DUCT: Normal it measures 3.5 mm. PANCREAS: Normal Visualized portions of the right kidney are unremarkable. No right upper quadrant ascites. US/ABD Limited w/ Elastography IMPRESSION: MODERATE HEPATIC FIBROSIS Reference Values: SRU <1.37 m/s (5.7kPa): No to mild fibrosis 1.37 m/s - 2.2 m/s: Moderate to severe fibrosis >2.2 m/s (15kPa): Significant fibrosis / cirrhosis METAVIR Score F2 or higher: 1.34 m/s (5.7kPa) F3 or higher: 1.55 m/s (7.3kPa) F4: 1.80 m/s (10kPa) * If the IQR/Med is >30%, the variance in the measurements is a large and the a ccuracy of the measurement may be in question. Reading Location: [id number]
== END | disposition home or self-care (01) ==
PROVIDERS: PCP Internal Medicine; Referring Provider Internal Medicine; Visit Provider Internal Medicine
DX: K76.0 Fatty (change of) liver, not elsewhere classified (principal)
CPT/HCPCS: 76705; 76981

== ENCOUNTER 2025-03-08 07:20 | Day surgery (SDC) | payer MEDICARE, SELFPAY ==
[2025-03-08] VITALS (8 sets, daily range): BP systolic 113–138; BP diastolic 67–78; PULSE 55–64; RESP 14–16; TEMP 36.4–36.6; O2SAT 87–98; BMI 24.5
[2025-03-08] MEDS: Lactated Ringers 1,000 ML 15 ML IV (07:53)
== END 2025-03-08 09:59 | disposition home or self-care (01) ==
LOC: EN 07:24 → AC 07:25
PROVIDERS: PCP Internal Medicine; Referring Provider Internal Medicine; Visit Provider Internal Medicine Gastroenterology
PROC: 0DJ08ZZ Inspection of Upper Intestinal Tract, Via Natural or Artificial Opening Endoscopic (ICD-10-PCS; CPT 43235; principal; 2025-03-08 08:10)
DX: K22.70 Barrett's esophagus without dysplasia (principal); K76.0 Fatty (change of) liver, not elsewhere classified; I10 Essential (primary) hypertension; E78.5 Hyperlipidemia, unspecified; K31.89 Other diseases of stomach and duodenum; Z79.899 Other long term (current) drug therapy
CPT/HCPCS: 43239; 88305

== ENCOUNTER → 2025-07-09 | Outpatient (CLI) | payer MEDICARE, SELFPAY | END | disposition home or self-care (01) | LOC: US 08:50 | PROVIDERS: PCP Internal Medicine; Referring Provider Internal Medicine Gastroenterology; Visit Provider Internal Medicine Gastroenterology | DX: K76.0 Fatty (change of) liver, not elsewhere classified (principal) | CPT/HCPCS: 76705; 76981 ==

== ENCOUNTER → 2025-07-26 | Outpatient (CLI) | payer MEDICARE, SELFPAY ==
[2025-07-26 12:21] LABS: Hematocrit 44.2 % (37-47); Hemoglobin 14.6 g/dL (12.0-15.0); Immature Granulocytes Count 0.010 X10^3/uL (0.0-0.0); Mean Corp Hgb Conc 33.0 g/dL (32-36); Mean Corpuscular Volume 91.7 fL (81-99); Mean Platelet Vol. 9.2 fl (6.2-12.0); NRBC Flagged by Analyzer 0 % (0-5); Platelet Count 288 K/mm3 (150-450); RBC Distribution Width CV 12.1 % (11.6-14.6); RBC Distribution Width SD 40.5 fl (35.1-43.9); Red Blood Count 4.82 M/mm3 (4.2-5.4); White Blood Count 6.1 K/mm3 (4.4-11.0)
[2025-07-26 13:20] LABS: AST(SGOT) 21 U/L (<=31); Alanine Aminotransfer ALT/SGPT 19 U/L (<=34); Albumin, Serum 4.4 g/dL (3.4-4.8); Alkaline Phosphatase 69 U/L (35-104); Anion Gap 11 (5-15); BUN 17 mg/dL (4-19); BUN/Creat Ratio 21.8 RATIO (10-20); Calcium,Total 9.3 mg/dL (7.6-11.0); Carbon Dioxide 23.1 mmol/L (21.0-32.0); Chloride 105 mmol/L (98-108); Cholesterol 165 mg/dL (<=200); Globulin 2.5 g/dL (2.2-4.2); Glucose 103 mg/dL (70-99); Low Density Lipoprotein Calc. 91 mg/dL; Potassium 4.3 mmol/L (3.3-5.1); Triglycerides 110 mg/dL; Very Low Density Lipoprotein 22 mg/dL (5-40); Vitamin D,25 Hydroxy 63.2 ng/mL (30-100); cholesterol:hdl ratio screen 3.05
[2025-07-26 13:28] LABS: Creatinine, Urine (random) 192.00 mg/dL (28.00-217.00); Microalbumin,Random Urine 16.2 mg/L (<20 mg/L)
== END | disposition home or self-care (01) ==
LOC: MTLAB 10:13
PROVIDERS: PCP Internal Medicine; Referring Provider Internal Medicine; Visit Provider Internal Medicine
DX: I10 Essential (primary) hypertension (principal); E78.5 Hyperlipidemia, unspecified; M81.0 Age-related osteoporosis without current pathological fracture; R73.09 Other abnormal glucose
CPT/HCPCS: 36415; 80053; 80061; 82043; 82306; 82570; 83036; 85025